=== PATIENT | female | born 1945 | race Caucasian/White ===

== ENCOUNTER 2018-07-03 09:10 | Inpatient (IN) | payer MEDICARE ==
[~2018-07-03] VITALS: Ht 162.6 cm; Wt 85.8 kg
[2018-07-03] VITALS (10 sets, daily range): BP systolic 109–135; BP diastolic 59–96
[2018-07-03 09:36] LABS: BASOPHILS % (AUTO) 0 % (0-10); EOSINOPHILS # (AUTO) 0.1 10^3/uL (0.0-0.3); EOSINOPHILS % (AUTO) 1 % (0-10); HEMATOCRIT 40 % (35-52); LYMPHOCYTES # (AUTO) 2.1 X 10^3 (1.0-4.0); LYMPHOCYTES % (AUTO) 27 % (12-44); MEAN CORPUSCULAR HGB CONC 35 G/DL (32-36); MEAN CORPUSCULAR VOLUME 94 FL (80-99); MONOCYTES # (AUTO) 0.5 X 10^3 (0.0-1.0); MONOCYTES % (AUTO) 7 % (0-12); NEUTROPHILS # (AUTO) 4.8 X 10^3 (1.8-7.8); NEUTROPHILS % (AUTO) 64 % (42-75); PLATELET COUNT 277 10^3/uL (130-400); RED BLOOD COUNT 4.31 10^6/uL (4.35-5.85); RED CELL DISTRIBUTION WIDTH 13.6 % (10.0-14.5); WHITE BLOOD COUNT 7.5 10^3/uL (4.3-11.0)
[2018-07-03 09:37] LABS: MEAN CORPUSCULAR HEMOGLOBIN 32 PG (25-34)
[2018-07-03] MEDS ORDERED: DILTIAZEM 25 MG/5 ML INJ (CARDIZEM) VIAL IVP ONE (09:45)
[2018-07-03] MEDS ORDERED: DILTIAZEM IV FOR DRIP 125 MG in NS (IVPB) 100 ML IV SCH ×2 (09:45→12:45)
[2018-07-03 09:55] LABS: PROTHROMBIN TIME PATIENT 13.5 SEC (12.2-14.7)
--- OUTSIDE RECORDS SUMMARY | 2018-07-03 09:59 | XMS REPORT ---
Author Author CHANDRAKANT BLOCK [facility] Address [address] [place] [address] Phone Unavailable Care Team Providers Care Automatic Equipment Technician Name Role Phone CHANDRAKANT BLOCK Unavailable Unavailable PROBLEMS Type Condition ICD9-CM Code [id number] Code Onset Dates Condition Status SNOMED Code Problem Other and unspecified noninfectious gastroenteritis and colitis 558.9 Active 41305384 Problem Unspecified conjunctivitis 372.30 Active 4784148 Problem Redness or discharge of eye 379.93 Active 94866932 Assessment Dental examination Z01.20 Apr, Active 765916882 Problem Nausea with vomiting 787.01 Active 30425840 Problem Blood in stool 578.1 Active 491161963 Problem Urinary tract infection, site not specified 599.0 Active 70103655 Problem Cough 786.2 Active 53524263 Problem Personal history of colonic polyps V12.72 Active 628154189 Problem Family history of malignant neoplasm of gastrointestinal tract V16.0 Active 246345476 Problem Elevated blood pressure reading without diagnosis of hypertension 796.2 Active 772474564 Problem Actinic keratosis 702.0 Active 962056822 ALLERGIES Substance Reaction Event Type Date Status N.K.D.A. Unknown Non Drug Allergy Apr, Unknown SOCIAL HISTORY No smoking Hx information available PLAN OF CARE VITAL SIGNS Blood pressure systolic 145 mmHg 2016-05-11 Blood pressure diastolic 85 mmHg 2016-05-11 MEDICATIONS Unknown Medications RESULTS No Results PROCEDURES Procedure Date Ordered Related Diagnosis Body Site COMP ORAL EVALUATION - NEW/EST PT May 11, 2016 INTRAORL-PERIAPICAL 1 FILM 78198 May 11, 2016 TOPICAL FLUORIDE VARNISH May 11, 2016 PROPHYLAXIS - ADULT May 11, 2016 INTRAORL-PERIAPICAL EA ADD FILM May 11, 2016 INTRAORL-PERIAPICAL EA ADD FILM May 11, 2016 PANORAMIC FILM SEE ALSO CODE 45117 May 11, 2016 BITEWINGS - FOUR FILMS May 11, 2016 IMMUNIZATIONS No Known Immunizations
--- OUTSIDE RECORDS SUMMARY | 2018-07-03 09:59 | XMS REPORT ---
Author Author KEDAR BURRIS [facility] Address [address] [place] [address] Care Team Providers Care Clinical Documentation Improvement Specialist Name Role Phone FATUMA KEDAR Unavailable PROBLEMS Type Condition ICD9-CM Code [id number] Code Onset Dates Condition Status SNOMED Code Problem Elevated blood pressure reading without diagnosis of hypertension 796.2 Active 021015285 Problem Cough 786.2 Active 89303041 Problem Nausea with vomiting 787.01 Active 83892749 Problem Family history of malignant neoplasm of gastrointestinal tract V16.0 Active 705443965 Problem Personal history of colonic polyps V12.72 Active 488215657 Problem Unspecified conjunctivitis 372.30 Active 5136972 Problem Redness or discharge of eye 379.93 Active 84926576 Problem Urinary tract infection, site not specified 599.0 Active 81154300 Problem Actinic keratosis 702.0 Active 175806231 Problem Other and unspecified noninfectious gastroenteritis and colitis 558.9 Active 08725822 Problem Blood in stool 578.1 Active 904389266 ALLERGIES No Known Allergies ENCOUNTERS Encounter Location Date Diagnosis [facility] [id number] [place] [address] May, Dysuria R30.0 and Bronchitis J40 [facility] [id number] [place] [address] Mar, Acute allergic rhinitis due to pollen, unspecified seasonality J30.1 [facility] [address] [id number] Oct, Dental examination Z01.20 [facility] [id number] [place] [id number] Jul, Dental examination Z01.20 [facility] [address] [id number] Jun, Dental examination Z01.20 [facility] [address] [id number] [place] [id number] Apr, Dental examination Z01.20 [facility] [address] [id number] [place] [address] 14 Dec, 2014 [facility] [address] [id number] [place] [address] Dec, [facility] [address] [id number] [place] [address] Nov, [facility] [address] [id number] [place] [address] Nov, [facility] [address] [id number] [place] [address] January, [facility] [address] [id number] [place] [address] January, [facility] [address] [id number] [place] Apr, [facility] [address] [id number] [place] [address] Apr, [facility] [address] [id number] [place] [address] Apr, [facility] [address] [id number] [place] [address] Aug, [facility] [address] [id number] [address] Aug, [facility] [address] [id number] [place] [address] Dec, [facility] [address] [id number] [place] [address] Nov, [facility] [address] [id number] [address] Nov, [facility] [address] [id number] [address] Nov, [facility] [address] [id number] [address] Jul, [facility] [address]65[address] [address] Jul, [facility] [address] [address] Jul, [facility] [address]65[address] [address] Jun, [facility] [address] [address] Jun, [facility] [address] [address] Jun, [facility] [address] [id number] [address] May, IMMUNIZATIONS No Known Immunizations SOCIAL HISTORY Never Assessed REASON FOR VISIT Nausea/cough, rib pain started about 1 week ago JStrasserRN PLAN OF CARE Activity Details Follow Up prn Reason: VITAL SIGNS Height 64 in 2017-03-23 Weight 194.8 lbs 2017-03-23 Temperature 97.2 degrees Fahrenheit 2017-03-23 Heart Rate 60 bpm 2017-03-23 Respiratory Rate 22 2017-03-23 BMI 33.43 kg/m2 2017-03-23 Blood pressure systolic 124 mmHg 2017-03-23 Blood pressure diastolic 88 mmHg 2017-03-23 MEDICATIONS Medication Instructions Dosage Frequency Start Date End Date Duration Status Ibuprofen Active RESULTS No Results PROCEDURES Procedure Date Ordered Result Body Site [facility] VISIT ESTABLISHED PATIENT March 23, 2017 INSTRUCTIONS MEDICATIONS ADMINISTERED No Known Medications MEDICAL (GENERAL) HISTORY Type Description Date Medical History hbp in the past Surgical History hysterectomy, total with bilateral salpingo-oophorectomy (BSO )
--- OUTSIDE RECORDS SUMMARY | 2018-07-03 09:59 | XMS REPORT ---
Author Author CAIT COYNE Organization [facility] Address [address] [place] [address] Care Team Providers Care Narrow Fabrics Weaver Name Role Phone CAIT COYNE Unavailable PROBLEMS Type Condition ICD9-CM Code EOA56-MP Code Onset Dates Condition Status SNOMED Code Problem Elevated blood pressure reading without diagnosis of hypertension 796.2 Active 675844104 Problem Cough 786.2 Active 39276066 Problem Nausea with vomiting 787.01 Active 40133873 Problem Family history of malignant neoplasm of gastrointestinal tract V16.0 Active 184597515 Problem Personal history of colonic polyps V12.72 Active 827355827 Problem Unspecified conjunctivitis 372.30 Active 2362308 Problem Redness or discharge of eye 379.93 Active 22372832 Problem Urinary tract infection, site not specified 599.0 Active 80286526 Problem Actinic keratosis 702.0 Active 109346042 Problem Other and unspecified noninfectious gastroenteritis and colitis 558.9 Active 84440388 Problem Blood in stool 578.1 Active 534212868 ALLERGIES No Known Allergies ENCOUNTERS Encounter Location Date Diagnosis [facility] [address] [address] May, Dysuria R30.0 and Bronchitis J40 [facility] [id number] [place] [address] Mar, Acute allergic rhinitis due to pollen, unspecified seasonality J30.1 [facility] [address] [id number] Oct, Dental examination Z01.20 [facility] [id number] [place] [id number] Jul, Dental examination Z01.20 [facility] [address] [id number] Jun, Dental examination Z01.20 [facility] [address] [id number] [place] [id number] Apr, Dental examination Z01.20 [facility] [address] [id number] [place] [address] Dec, [facility] [address] [id number] [place] Dec, [facility] [address] [id number] [place] [address] Nov, [facility] [address] [id number] [place] [address] Nov, [facility] [address] [id number] [place] [address] January, [facility] [address] [id number] [place] [address] January, [facility] [address] [id number] [place] [address] Apr, [facility] [address] [id number] [place] [address] Apr, [facility] [address] [id number] [place] [address] Apr, [facility] [address] [id number] [address] Aug, [facility] [address] [id number] [address] Aug, [facility] [address] [id number] [place] Dec, [facility] [address] [id number] [place] Nov, [facility] [address] [id number] [place] [address] Nov, [facility] [place] [facility] [address] [id number] [address] Nov, [facility] [address] [address] Jul, [facility] [address] [address] Jul, [facility] [address] [address] Jul, [facility] [address] [address] Jun, [facility] [address] [place] [address] Jun, [facility] [address] [address] Jun, [facility] [address] [address] May, IMMUNIZATIONS No Known Immunizations SOCIAL HISTORY Never Assessed REASON FOR VISIT congestion, cough, chest mucous started last month JStrasserRN, Burning with urination started several days ago PLAN OF CARE VITAL SIGNS Height 64 in 2017-06-07 Weight 190.0 lbs 2017-06-07 Temperature 98.2 degrees Fahrenheit 2017-06-07 Heart Rate 84 bpm 2017-06-07 Respiratory Rate 18 2017-06-07 BMI 32.61 kg/m2 2017-06-07 Blood pressure systolic 128 mmHg 2017-06-07 Blood pressure diastolic 80 mmHg 2017-06-07 MEDICATIONS Medication Instructions Dosage Frequency Start Date End Date Duration Status PredniSONE 20 mg Orally Once a day 2 tablets 24h May, May, 05 days Active Doxycycline Hyclate 100 MG Orally every 12 hrs 1 capsule 12h May, May, 5 day(s) Active Zyrtec Allergy 10 MG Orally Once a day 1 tablet 24h Active Ibuprofen Active RESULTS Name Result Date Reference Range UA LONG DIP (IN HOUSE) 2017-06-07 Lot # [id number] Exp date 2018-05-18 Clarity cloudy Color dark yellow Odor yes GLU negative UMANG negative KET trace SG 1.020 BLO 3+ pH 6.5 Protein 3+ URO 1.0 NIT positive RUBIO 3+ Lot # [id number] Exp date December 2017 CULTURE, URINE 2017-06-07 Urine Culture, Routine Final report Result 1 Escherichia coli Antimicrobial Susceptibility PROCEDURES Procedure Date Ordered Result Body Site URINALYSIS, AUTO, W/O SCOPE Jun 07, 2017 [facility], 2017 [facility] VISIT ESTABLISHED PATIENT Jun 07, 2017 INSTRUCTIONS MEDICATIONS ADMINISTERED No Known Medications MEDICAL (GENERAL) HISTORY Type Description Date Medical History hbp in the past Surgical History hysterectomy, total with bilateral salpingo-oophorectomy (BSO )
--- OUTSIDE RECORDS SUMMARY | 2018-07-03 10:00 | XMS REPORT ---
Author Author MARY READ [facility] Address Unknown Care Team Providers Care Duct Layer Name Role Phone MARY READ Unavailable PROBLEMS Type Condition ICD9-CM Code OVD56-VG Code Onset Dates Condition Status SNOMED Code Problem Elevated blood pressure reading without diagnosis of hypertension 796.2 Active 416644388 Problem Cough 786.2 Active 21555009 Problem Nausea with vomiting 787.01 Active 98439522 Problem Family history of malignant neoplasm of gastrointestinal tract V16.0 Active 624753770 Problem Personal history of colonic polyps V12.72 Active 264311021 Problem Unspecified conjunctivitis 372.30 Active 4760116 Problem Redness or discharge of eye 379.93 Active 52475796 Problem Urinary tract infection, site not specified 599.0 Active 42804447 Problem Actinic keratosis 702.0 Active 552925 Problem Other and unspecified noninfectious gastroenteritis and colitis 558.9 Active 65856027 Problem Blood in stool 578.1 Active 658896293 ALLERGIES No Known Allergies SOCIAL HISTORY Never Assessed PLAN OF CARE Activity Details Follow Up prn Reason:hygiene VITAL SIGNS Blood pressure systolic 136 mmHg 2016-10-27 Blood pressure diastolic 88 mmHg 2016-10-27 MEDICATIONS Medication Instructions Dosage Frequency Start Date End Date Duration Status Ibuprofen Active RESULTS No Results PROCEDURES Procedure Date Ordered Result Body Site RESIN COMPOS - 1 SURFACE POSTERIOR Oct 27, 2016 IMMUNIZATIONS No Known Immunizations MEDICAL (GENERAL) HISTORY Type Description Date Medical History hbp in the past Surgical History hysterectomy, total with bilateral salpingo-oophorectomy (BSO )
--- OUTSIDE RECORDS SUMMARY | 2018-07-03 10:00 | XMS REPORT ---
Author Author MARY READ [facility] Address Unknown Care Team Providers Care Costumer Name Role Phone MARY READ Unavailable PROBLEMS Type Condition ICD9-CM Code [id number] Code Onset Dates Condition Status SNOMED Code Problem Other and unspecified noninfectious gastroenteritis and colitis 558.9 Active 40253091 Problem Unspecified conjunctivitis 372.30 Active 8469054 Problem Redness or discharge of eye 379.93 Active 95814383 Problem Nausea with vomiting 787.01 Active 26847500 Problem Blood in stool 578.1 Active 335908213 Problem Urinary tract infection, site not specified 599.0 Active 19173124 Problem Cough 786.2 Active 62231332 Problem Personal history of colonic polyps V12.72 Active 721610345 Problem Family history of malignant neoplasm of gastrointestinal tract V16.0 Active 372321483 Problem Elevated blood pressure reading without diagnosis of hypertension 796.2 Active 711837374 Problem Actinic keratosis 702.0 Active 188995583 ALLERGIES Substance Reaction Event Type Date Status N.K.D.A. Unknown Non Drug Allergy Jul, Unknown SOCIAL HISTORY No smoking Hx information available PLAN OF CARE Activity Details Follow Up prn Reason:fillings VITAL SIGNS Blood pressure systolic 138 mmHg 2016-08-16 Blood pressure diastolic 94 mmHg 2016-08-16 MEDICATIONS No Known Medications RESULTS No Results PROCEDURES Procedure Date Ordered Related Diagnosis Body Site INTRAORL-PERIAPICAL 1 FILM [id number] Aug 16, 2016 RESIN COMPOS - 3 SURFACES ANTERIOR Aug 16, 2016 IMMUNIZATIONS No Known Immunizations
--- OUTSIDE RECORDS SUMMARY | 2018-07-03 10:00 | XMS REPORT | Continuity of Care Document ---
Author Author [facility] Address Unknown Phone Unavailable Allergies There is no data. Medications There is no data. Problems Date Dx Coded Attending Type Code Diagnosis Diagnosed By 09/29/2008 401.1 HYPERTENSION, BENIGN ESSENTIAL 09/29/2008 401.1 HYPERTENSION, BENIGN ESSENTIAL 09/29/2008 VAISHALI HERNA[place]DEZ DO K 401.1 HYPERTENSION, BENIGN ESSENTIAL 09/29/2008 VAISHALI HERNANDEZ DO K 401.1 HYPERTENSION, BENIGN ESSENTIAL 05/29/2009 845.00 ANKLE SPRAIN 05/29/2009 845.00 ANKLE SPRAIN 05/29/2009 MIRIAM HERNANDEZ DOA K 845.00 ANKLE SPRAIN 05/29/2009 MIRIAM HERNANDEZ DOA K 845.00 ANKLE SPRAIN 09/19/2009 466.0 ACUTE BRONCHITIS 09/19/2009 477.9 ALLERGIC RHINITIS 09/19/2009 786.2 cough 09/19/2009 466.0 ACUTE BRONCHITIS 09/19/2009 477.9 ALLERGIC RHINITIS 09/19/2009 786.2 cough 09/19/2009 MIRIAM HERNANDEZ DOA K 466.0 ACUTE BRONCHITIS 09/19/2009 DAVID ALVAREZ VAISHALI K 477.9 ALLERGIC RHINITIS 09/19/2009 MIRIAM HERNANDEZ DOA K 786.2 cough 09/19/2009 MIRIAM HERNANDEZ DOA K 466.0 ACUTE BRONCHITIS 09/19/2009 DAVID ALVAREZ VAISHALI K 477.9 ALLERGIC RHINITIS 09/19/2009 DAVID ALVAREZ VAISHALI K 786.2 cough 09/24/2009 461.8 OTHER ACUTE SINUSITIS 09/24/2009 461.8 OTHER ACUTE SINUSITIS 09/24/2009 VAISHALI HERNANDEZ DO K 461.8 OTHER ACUTE SINUSITIS 09/24/2009 DAVID ALVAREZ VAISHALI K 461.8 OTHER ACUTE SINUSITIS 02/06/2010 599.0 URINARY TRACT INFECTION 02/06/2010 788.41 URINARY FREQUENCY 02/06/2010 788.63 URINARY URGENCY 02/06/2010 599.0 URINARY TRACT INFECTION 02/06/2010 788.41 URINARY FREQUENCY 02/06/2010 788.63 URINARY URGENCY 02/06/2010 HERNANDEZ DO, VAISHALI K 599.0 URINARY TRACT INFECTION 02/06/2010 HERNANDEZ DO, VAISHALI K 788.41 URINARY FREQUENCY 02/06/2010 HERNANDEZ DO, VAISHALI K 788.63 URINARY URGENCY 02/06/2010 HERNANDEZ DO, VAISHALI K 599.0 URINARY TRACT INFECTION 02/06/2010 HERNANDEZ DO, VAISHALI K 788.41 URINARY FREQUENCY 02/06/2010 HERNANDEZ DO, VAISHALI K 788.63 URINARY URGENCY 05/24/2011 V06.5 TD DX 05/24/2011 V06.5 TD DX 05/24/2011 HERNANDEZ DO, VAISHALI K V06.5 TD DX 05/24/2011 HERNANDEZ DO, VAISHALI K V06.5 TD DX 07/06/2011 272.4 HYPERLIPIDEMIA 07/06/2011 272.4 HYPERLIPIDEMIA 07/06/2011 HERNANDEZ DO, VAISHALI K 272.4 HYPERLIPIDEMIA 07/06/2011 HERNANDEZ DO, VAISHALI K 272.4 HYPERLIPIDEMIA 11/17/2011 599.0 URINARY TRACT INFECTION 11/17/2011 786.2 COUGH 11/17/2011 599.0 URINARY TRACT INFECTION 11/17/2011 786.2 COUGH 11/17/2011 HERNANDEZ DO, VAISHALI K 599.0 URINARY TRACT INFECTION 11/17/2011 HERNANDEZ DO, VAISHALI K 786.2 COUGH 11/17/2011 HERNANDEZ DO, VAISHALI K 599.0 URINARY TRACT INFECTION 11/17/2011 HERNANDEZ DO, VAISHALI K 786.2 COUGH 09/04/2012 372.30 CONJUNCTIVITIS UNSPECIFIED 09/04/2012 379.93 REDNESS OR DISCHARGE OF EYE 09/04/2012 372.30 CONJUNCTIVITIS UNSPECIFIED 09/04/2012 379.93 REDNESS OR DISCHARGE OF EYE 09/04/2012 HERNANDEZ DO, VAISHALI K 372.30 CONJUNCTIVITIS UNSPECIFIED 09/04/2012 HERNANDEZ DO, VAISHALI K 379.93 REDNESS OR DISCHARGE OF EYE 09/04/2012 HERNANDEZ DO, VAISHALI K 372.30 CONJUNCTIVITIS UNSPECIFIED 09/04/2012 HERNANDEZ DO, VAISHALI K 379.93 REDNESS OR DISCHARGE OF EYE 05/06/2013 558.9 GASTROENTERITIS NONINFECTIOUS 05/06/2013 578.1 HEMATOCHEZIA 05/06/2013 787.01 NAUSEA WITH VOMITING 05/06/2013 VAISHALI HERNANDEZ DO 558.9 GASTROENTERITIS NONINFECTIOUS 05/06/2013 VAISHALI HERNANDEZ DO 578.1 HEMATOCHEZIA 05/06/2013 VAISHALI HERNANDEZ DO 787.01 NAUSEA WITH VOMITING 05/06/2013 VAISHALI HERNANDEZ DO 558.9 GASTROENTERITIS NONINFECTIOUS 05/06/2013 VAISHALI HERNANDEZ DO 578.1 HEMATOCHEZIA 05/06/2013 VAISHALI HERNANDEZ DO 787.01 NAUSEA WITH VOMITING 01/20/2014 VAISHALI HERNANDEZ DO 796.2 ELEVATED BLOOD PRESSURE READING WITHOUT DIAGNOSIS OF HYPERTENSION 01/20/2014 VAISHALI HERNANDEZ DO 796.2 ELEVATED BLOOD PRESSURE READING WITHOUT DIAGNOSIS OF HYPERTENSION 12/02/2014 VAISHALI HERNANDEZ DO 702.0 ACTINIC KERATOSIS 12/02/2014 VAISHALI HERNANDEZ DO V12.72 PERSONAL HISTORY OF COLONIC POLYPS 12/02/2014 VAISHALI HERNANDEZ DO V16.0 FAMILY HISTORY OF MALIGNANT NEOPLASM OF GASTROINTESTINAL TRACT Procedures Code [place] [address] ROUTINE VENIPUNCTURE 05/06/2013 78269 BMP 05/06/2013 46808 CBC 05/06/2013 2000F BLOOD PRESSURE CHECK 01/20/2014 76186 ROUTINE VENIPUNCTURE 12/18/2014 13692 CBC 12/18/2014 [id number] GFR CALC (RESULT ONLY) 12/18/2014 62640 CMP 12/18/2014 02823 LIPID PANEL 12/18/2014 59414 TSH 12/18/2014 Results Test Result Range CULTURE, URINE - 06/07/17 12:11 Urine Culture, Routine Final report NRG Result 1 Escherichia coli NRG Antimicrobial Susceptibility NRG Urine Culture, Routine - 06/07/17 12:11 Urine Culture, Routine Note Encounters ACCT No. Visit Date/Time Discharge Status Pt. Type Provider Facility Loc./Unit Complaint [id number] 12/18/2014 08:15:00 12/18/2014 23:59:59 CLS Outpatient VAISHALI HERNANDEZ [place] [id number] 01/20/2014 13:21:00 01/20/2014 23:59:59 CLS Outpatient VAISHALI HERNANDEZ DO [id number] 09/04/2012 18:26:00 09/04/2012 23:59:59 CLS Outpatient [id number] 05/06/2013 15:44:00 Document Registration [id number] 06/07/2017 11:40:00 06/07/2017 23:59:59 [facility] Outpatient MABEL BETANCOURT [facility] [id number] 06/07/2017 11:40:00 Document Registration [id number] 06/09/2017 19:06:00 Document Registration
--- NOTE | 2018-07-03 10:18 | ED Chest Pain ---
General Chief Complaint: Chest Pain Stated Complaint: CP Nursing Triage Note: TO ED PER EMS FROM [facility] WITH CHEST PAIN AND SOA ON ADMIT MONITOR SHOW A FIB WITH RVR WITH HR 130- 160"S. PATIENT REPORTS THAT HAS FELT SOA WITH CHEST PAIN ON AND OFF FOR LAST 2 DAYS Nursing Sepsis Screen: No Definite Risk Source: patient, EMS, other ([facility]) Exam Limitations: no limitations History of Present Illness Date Seen by Provider: Jul 03, 2018 Time Seen by Provider: 09:11 Initial Comments This 73-year-old woman presents to emergency room with complaints of chest pain. She arrives via EMS from [facility] clinic where she received aspirin 324 mg and a dose of nitroglycerin. The nitroglycerin did not help. EKG performed in the clinic showed atrial fibrillation with a normal rate. She is in RVR for EMS. Pain has improved since arriving to the hospital. She has no prior history of atrial fibrillation or any cardiac history. She woke this morning around 01:00 with the symptoms. She felt particularly lightheaded and dizzy. She had pain in the sternal area and radiating up to the left jaw. She recalls having a similar episode that was brief the night prior. Allergies and Home Medications Allergies Coded Allergies: No Known Drug Allergies (Unverified , 07/03/18) Home Medications Aspirin/Caffeine 1 Each Tablet, 2 TAB PO DAILY, (Reported) Patient Home Medication List Home Medication List Reviewed: Yes Review of Systems Review of Systems Constitutional: no symptoms reported EENTM: No Symptoms Reported Respiratory: No Symptoms Reported Cardiovascular: See HPI Gastrointestinal: No Symptoms Reported Genitourinary: No Symptoms Reported Musculoskeletal: no symptoms reported Skin: no symptoms reported Psychiatric/Neurological: No Symptoms Reported Endocrine: No Symptoms Reported Hematologic/Lymphatic: No Symptoms Reported Past Jofkuvy-Qxwoxz-Hogtzx Hx Past Med/Social Hx: Reviewed and Corrections made Patient Social History Alcohol Use: Denies Use Recreational Drug Use: No Smoking Status: Never a Smoker Recent Foreign Travel: No Contact w/Someone Who Travel: No Recent Infectious Disease Expo: No Past Medical History Surgeries: Yes (anterior-posterior pelvic repair) Hysterectomy Respiratory: No Cardiac: No 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 oz. 90.734281ud; BMI Method:Stated General Appearance: No Apparent Distress, WD/WN HEENT: PERRL/EOMI, Normal ENT Inspection, Pharynx Normal Neck: Normal Inspection Respiratory: Lungs Clear, Normal Breath Sounds, No Accessory Muscle Use, No Respiratory Distress Cardiovascular: No Edema, No Murmur, Irregularly Irregular, Tachycardia Gastrointestinal: Normal Bowel Sounds, Non Tender, Soft Extremity: Normal Inspection, Non Tender, No Pedal Edema Neurologic/Psychiatric: Alert, Oriented x3, No Motor/Sensory Deficits, Normal Mood/Affect, client support associate II-XII Norm as Tested Skin: Normal Color, Warm/Dry Progress/Results/Core Measures Results/Orders Lab Results Laboratory Tests Test 07/03/18 09:30 Range/Units White Blood Count 7.5 4.3-11.0 10^3/uL Red Blood Count 4.31 L 4.35-5.85 10^6/uL Hemoglobin 14.0 11.5-16.0 G/DL Hematocrit 40 35-52 % Mean Corpuscular Volume 94 80-99 FL Mean Corpuscular Hemoglobin 32 25-34 PG Mean Corpuscular Hemoglobin Concent 35 32-36 G/DL Red Cell Distribution Width 13.6 10.0-14.5 % Platelet Count 277 130-400 10^3/uL Mean Platelet Volume 9.0 7.4-10.4 FL Neutrophils (%) (Auto) 64 42-75 % Lymphocytes (%) (Auto) 27 12-44 % Monocytes (%) (Auto) 7 0-12 % Eosinophils (%) (Auto) 1 0-10 % Basophils (%) (Auto) 0 0-10 % Neutrophils # (Auto) 4.8 1.8-7.8 X 10^3 Lymphocytes # (Auto) 2.1 1.0-4.0 X 10^3 Monocytes # (Auto) 0.5 0.0-1.0 X 10^3 Eosinophils # (Auto) 0.1 0.0-0.3 10^3/uL Basophils # (Auto) 0.0 0.0-0.1 10^3/uL Prothrombin Time 13.5 12.2-14.7 SEC INR Comment 1.0 0.8-1.4 Activated Partial Thromboplast Time 29 24-35 SEC Sodium Level 143 135-145 MMOL/L Potassium Level 4.0 3.6-5.0 MMOL/L Chloride Level 112 H 98-107 MMOL/L Carbon Dioxide Level 18 L 21-32 MMOL/L Anion Gap 13 5-14 MMOL/L Blood Urea Nitrogen 25 H 7-18 MG/DL Creatinine 0.78 0.60-1.30 MG/DL Estimat Glomerular Filtration Rate > 60 BUN/Creatinine Ratio 32 Glucose Level 107 H 70-105 MG/DL Calcium Level 9.6 8.5-10.1 MG/DL Corrected Calcium 9.8 8.5-10.1 MG/DL Magnesium Level 2.0 1.8-2.4 MG/DL Total Bilirubin 1.0 0.1-1.0 MG/DL Aspartate Amino Transf (AST/SGOT) 17 5-34 U/L Alanine Aminotransferase (ALT/SGPT) 17 0-55 U/L Alkaline Phosphatase 86 40-136 U/L Myoglobin 49.0 10.0-92.0 NG/ML Troponin I < 0.30 <0.30 NG/ML Total Protein 6.4 6.4-8.2 GM/DL Albumin 3.7 3.2-4.5 GM/DL TSH [place]in Testing 1.55 0.35-4.94 UIU/ML My Orders Orders - REMBERTO JUAREZ MD Ekg Tracing (07/03/18 09:11) Cbc With Automated Diff (07/03/18:) Magnesium (07/03/18:) Chest 1 View, Ap/Pa Only (07/03/18:) Cardiac Profile 1 (07/03/18:) Comprehensive Metabolic Panel (07/03/18:) Myoglobin Serum (07/03/18:) Protime With Inr (07/03/18:) Partial Thromboplastin Time (07/03/18:) O2 (07/03/18:) Monitor-Rhythm Ecg Trace Only (07/03/18:) Lipid Panel (07/04/18 06:00) Saline Lock/Iv-Start (07/03/18 09:17) Thyroid Analyzer (07/03/18 09:17) Diltiazem Injection (Cardizem Injection) (07/03/18 09:45) Ns (Ivpb) (Sodium C... W/Diltiazem Iv Fo (07/03/18 09:45) Apixaban Tablet (Eliquis Tablet) (07/03/18 11:45) Medications Given in ED Current Medications Medications Dose Ordered Sig/Surendra Route Start Time Stop Time Status Last Admin Dose Admin Diltiazem HCl 10 mg ONCE ONCE IVP 07/03/18 09:45 07/03/18 09:46 DC 07/03/18 09:39 10 MG Vital Signs/I&O 07/03/18 07/03/18 07/03/18 07/03/18 09:10 09:15 09:50 10:02 Pulse 113 Resp 18 B/P (MAP) 122/93 135/96 (109) Pulse Ox 98 O2 Delivery Room Air Room Air 07/03/18 10:54 Pulse 100 Resp 18 B/P (MAP) 134/95 (108) Pulse Ox 97 O2 Delivery Room Air Blood Pressure Mean: 109 Progress Progress Note : Progress Note Patient had much improved vital signs on her Cardizem drip. She was feeling much improved as well. Workup was unremarkable. Eliquis was initiated in the ER per Dr. Valente's recommendation. Initial ECG Impression Date: Jul 03, 2018 Initial ECG Impression Time: 09:13 Initial ECG Rate: 174 Initial ECG Rhythm: A Fib/Flutter Initial ECG Impression: Atrial Fibrillation w/RVR Comment Atrial fibrillation with repolarization abnormalities. Diagnostic Imaging Diagonstic Imaging: Xray Plain Films/CT/US/NM/MRI: chest Comments Chest x-ray viewed by me and report reviewed. See report below: NAME: MARY DEWITT [facility] REC#: [id number] PT STATUS: REG ER : 1945 PHYSICIAN: REMBERTO JUAREZ MD ADMIT DATE: 07/03/18/ER Draft Date of Exam:07/03/18 CHEST 1 VIEW, AP/PA ONLY Portable erect AP chest at 1019 hours. INDICATION: Chest pain, shortness of breath. There are no prior studies available for comparison. FINDINGS: The heart size is at the upper limits of normal or slightly enlarged. The lungs are clear. There is no sign of failure, pneumonia or pleural effusion to indicate an acute abnormality. The mediastinum is not widened but the superior mediastinum on the right is somewhat prominent. This is more likely due to vascular ectasia than to a mediastinal mass. If previous exams are available, they would be helpful for comparison. If there are no prior studies available, however, then CT of the chest would be recommended. The osseous structures are intact. IMPRESSION: 1. There is borderline cardiomegaly, but there is no evidence for an acute cardiopulmonary abnormality. 2. The prominence of superior mediastinum on the right is more likely due to vascular ectasia than to a mediastinal mass. Recommendations as above. Dictated on workstation # [id number] Dict: 07/03/18 1028 Trans: 07/03/18 1033 [id number] Interpreted by: LIZZ CARSON MD Departure Communication (Admissions) Time/Spoke to Admitting Phy: 11:25 Dr. Pierce Time/Spoke to Consulting Phy: 11:18 Dr. Valente Impression Primary Impression: Atrial fibrillation with RVR Additional Impressions: New onset a-fib Chest pain Qualified Codes: R07.9 - Chest pain, unspecified Disposition: ADMITTED INPATIENT Condition: Improved Admissions Decision to Admit Reason: Admit from ER (General) Decision to Admit/Date: Jul 03, 2018 Time/Decision to Admit Time: 09:11 REMBERTO JUAREZ MD Jul 03, 2018 10:18
--- NOTE | 2018-07-03 10:34 | Diagnostic Imaging Report ---
Portable erect AP chest at 1019 hours. INDICATION: Chest pain, shortness of breath. There are no prior studies available for comparison. FINDINGS: The heart size is at the upper limits of normal or slightly enlarged. The lungs are clear. There is no sign of failure, pneumonia or pleural effusion to indicate an acute abnormality. The mediastinum is not widened but the superior mediastinum on the right is somewhat prominent. This is more likely due to vascular ectasia than to a mediastinal mass. If previous exams are available, they would be helpful for comparison. If there are no prior studies available, however, then CT of the chest would be recommended. The osseous structures are intact. IMPRESSION: 1. There is borderline cardiomegaly, but there is no evidence for an acute cardiopulmonary abnormality. 2. The prominence of superior mediastinum on the right is more likely due to vascular ectasia than to a mediastinal mass. Recommendations as above. Dictated by: Dictated on workstation # [id number]
[2018-07-03 10:35] LABS: ALANINE AMINOTRANSFERASE 17 U/L (0-55); ALBUMIN 3.7 GM/DL (3.2-4.5); ALKALINE PHOSPHATASE 86 U/L (40-136); BUN/CREATININE RATIO 32; CALCIUM 9.6 MG/DL (8.5-10.1); CARBON DIOXIDE 18 MMOL/L (21-32); CHLORIDE 112 MMOL/L (98-107); CREATININE SERUM 0.78 MG/DL (0.60-1.30); GFR ESTIMATED > 60; GLUCOSE 107 MG/DL (70-105); SODIUM 143 MMOL/L (135-145); TOTAL PROTEIN 6.4 GM/DL (6.4-8.2)
[2018-07-03] MEDS ORDERED: APIXABAN 5 MG (ELIQUIS) TABLET PO ONE (11:45)
--- NOTE | 2018-07-03 12:30 | Consultation-Cardiology ---
HPI-Cardiology Cardiology Consultation: Date of Consultation 07/03/18 Time Seen by a Provider: 12:30 Date of Admission 07-03-18 Attending Physician Tiffany Pierce MD Admitting Physician No,Local Physician Consulting Physician Antonia Valente MD HPI: Chief Complaint: New onset a-fib with RVR Ms. Valenzuela is a 73 year old female admitted to ICU 10 from the ED with new onset a-fib with RVR Review of Systems-Cardiology Review of Systems Constitutional: No chills, No fever; tiredness Eyes: No vision change Ears/Nose/Throat: No recent hearing loss Respiratory: As described under HPI Cardiovascular: As described under HPI Gastrointestinal: abdomen distended; No constipation, No diarrhea; nausea; No vomiting Genitourinary: No dysuria, No hematuria Skin: No rash, No ulcerations Psychiatric/Neurological: No anxiety, No depression, No seizure, No focal weakness, No syncope Hematologic: No bleeding abnormalities IFO-Ywmshd-Zsblpk Hx Patient Social History Alcohol Use: Denies Use Recreational Drug Use: No Smoking Status: Never a Smoker Recent Foreign Travel: No Recent Infectious Disease Expo: No Hospitalization with Isolation: Denies Past Medical History PMH As described under Assessment. Allergies and Home Medications Allergies Coded Allergies: No Known Drug Allergies (Unverified , 07/03/18) Home Medications Aspirin/Caffeine 1 Each Tablet, 2 TAB PO DAILY, (Reported) Physical Exam-Cardiology Physical Exam Vital Signs/I&O 07/03/18 07/03/18 07/03/18 07/03/18 09:10 09:15 09:50 10:02 Pulse 113 Resp 18 B/P (MAP) 122/93 135/96 (109) Pulse Ox 98 O2 Delivery Room Air Room Air 07/03/18 07/03/18 07/03/18 07/03/18 10:54 12:10 12:30 12:30 Temp 98.2 Pulse 100 93 103 Resp 18 18 14 B/P (MAP) 134/95 (108) 125/75 (92) 127/80 (96) Pulse Ox 97 96 98 O2 Delivery Room Air Room Air Room Air Room Air 07/03/18 07/03/18 13:00 13:00 Pulse 92 105 Resp 8 B/P (MAP) 122/86 (98) Pulse Ox 98 O2 Delivery Room Air Capillary Refill : Less Than 3 Seconds Data Review Labs Laboratory Tests 07/03/18 09:30: White Blood Count 7.5, Red Blood Count 4.31L, Hemoglobin 14.0, Hematocrit 40, Mean Corpuscular Volume 94, Mean Corpuscular Hemoglobin 32, Mean Corpuscular Hemoglobin Concent 35, Red Cell Distribution Width 13.6, Platelet Count 277, Mean Platelet Volume 9.0, Neutrophils (%) (Auto) 64, Lymphocytes (%) (Auto) 27, Monocytes (%) (Auto) 7, Eosinophils (%) (Auto) 1, Basophils (%) (Auto) 0, Neutrophils # (Auto) 4.8, Lymphocytes # (Auto) 2.1, Monocytes # (Auto) 0.5, Eosinophils # (Auto) 0.1, Basophils # (Auto) 0.0, Prothrombin Time 13.5, INR Comment 1.0, Activated Partial Thromboplast Time 29, Sodium Level 143, Potassium Level 4.0, Chloride Level 112H, Carbon Dioxide Level 18L, Anion Gap 13 , Blood Urea Nitrogen 25H, Creatinine 0.78, Estimat Glomerular Filtration Rate > 60, BUN/Creatinine Ratio 32, Glucose Level 107H, Calcium Level 9.6, Corrected Calcium 9.8, Magnesium Level 2.0, Total Bilirubin 1.0, Aspartate Amino Transf ( AST/SGOT) 17, Alanine Aminotransferase (ALT/SGPT) 17, Alkaline Phosphatase 86, Myoglobin 49.0, Troponin I < 0.30, Total Protein 6.4, Albumin 3.7, TSH [place] Testing 1.55 Radiology NAME: MARY VALENZUELA [facility] REC#: [id number] PT STATUS: REG ER : 1945 PHYSICIAN: REMBERTO JUAREZ MD ADMIT DATE: 07/03/18/ER Draft Date of Exam:07/03/18 CHEST 1 VIEW, AP/PA ONLY Portable erect AP chest at 1019 hours. INDICATION: Chest pain, shortness of breath. There are no prior studies available for comparison. FINDINGS: The heart size is at the upper limits of normal or slightly enlarged. The lungs are clear. There is no sign of failure, pneumonia or pleural effusion to indicate an acute abnormality. The mediastinum is not widened but the superior mediastinum on the right is somewhat prominent. This is more likely due to vascular ectasia than to a mediastinal mass. If previous exams are available, they would be helpful for comparison. If there are no prior studies available, however, then CT of the chest would be recommended. The osseous structures are intact. IMPRESSION: 1. There is borderline cardiomegaly, but there is no evidence for an acute cardiopulmonary abnormality. 2. The prominence of superior mediastinum on the right is more likely due to vascular ectasia than to a mediastinal mass. Recommendations as above. Dictated on workstation # [id number] Dict: 07/03/18 1028 Trans: 07/03/18 1033 [id number] Interpreted by: LIZZ CARSON MD Electronically signed by: ECG Impression ECG Initial ECG Impression: Atrial Fibrillation w/RVR A/P-Cardiology Assessment/Admission Diagnosis New onset a-fib with RVR (first dx today) Clinical Quality Measures AMI/AHF: ASA po Prior to arrival: Yes (BY [facility] ) [address] [facility] Jul 03, 2018 12:30
--- OUTSIDE RECORDS SUMMARY | 2018-07-03 12:41 | XMS REPORT | Continuity of Care Document ---
Author Author [facility] Address Unknown Phone Unavailable Allergies There is [...] Procedures Code [place] [address] ROUTINE VENIPUNCTURE 05/06/2013 00816 BMP 05/06/2013 65616 CBC 05/06/2013 2000F BLOOD PRESSURE CHECK 01/20/2014 44106 ROUTINE VENIPUNCTURE 12/18/2014 83946 CBC 12/18/2014 [id number] GFR CALC (RESULT ONLY) 12/18/2014 74852 CMP 12/18/2014 07383 LIPID PANEL 12/18/2014 74784 TSH 12/18/2014 Results Test Result Range CULTURE, URINE - 06/07/17 12:11 Urine Culture, Routine Final report NRG Result 1 Escherichia coli NRG Antimicrobial Susceptibility NRG Urine Culture, Routine - 06/07/17 12:11 Urine Culture, Routine Note Encounters ACCT No. Visit Date/Time Discharge Status Pt. Type Provider Facility Loc./Unit Complaint [id number] 12/18/2014 08:15:00 12/18/2014 23:59:59 C[facility] Outpatient VAISHALI HERNANDEZ DO [id number] 01/20/2014 13:21:00 01/20/2014 23:59:59 CLS Outpatient VAISHALI HERNANDEZ DO [id number] 09/04/2012 18:26:00 09/04/2012 23:59:59 CLS Outpatient [id number] 05/06/2013 15:44:00 Document Registration [id number] 06/07/2017 11:40:00 06/07/2017 23:59:59 [facility] Out[facility] [id number] 06/07/2017 11:40:00 Document Registration [id number] 06/09/2017 19:06:00 Document Registration
[2018-07-03] MEDS ORDERED: ONDANSETRON 4 MG/2 ML (SDV) Z0FRAN IV PRN (12:45)
[2018-07-03] MEDS ORDERED: CATHETER FLUSH 10 ML SYR IV PRN (12:45)
[2018-07-03] MEDS ORDERED: DILTIAZEM 240 MG (CARDIZEM CD) CAP PO NR (13:00)
[2018-07-03] MEDS ORDERED: meTOproloL SUCCINATE 50 MG (TOPROL XL) TAB PO NR (13:00)
[2018-07-03] MEDS ORDERED: FLU QUADRIvalent (5+ YOA) 2018-2019 (AFLURIA) 0.5 ML IM ONE (13:00)
--- NOTE | 2018-07-03 13:39 | Consultation-Cardiology ---
HPI-Cardiology Cardiology Consultation: Date of Consultation 07/03/18 Time Seen by a Provider: 13:25 Date of Admission Attending Physician Tiffany Pierce MD Admitting Physician No,Local Physician Consulting Physician BERNADETTE NAM MD, MA, FACP, FACC, FSCAI, CCDS Physician requesting consult: [facility] HPI: Chief Complaint: Reason for consultation: New onset a-fib with RVR HPI: Ms. Valenzuela is a 73 year old female admitted to ICU 10 from the ED with new onset a-fib with RVR. She awoke with a feeling of palp and chest discomfort this am and went to her pcp from where she was sent to the ER. Was found to have A Fib with RVR. Has been having similar symptoms lasting less than an hour for the last several days at home. Today's episode was much more prolonged and lasted several hours prior to improvement in ER with vent rate control. Did received s/l NTG in ER but it did not help symptoms much. Chest discomfort is a feeling of pressure in the mid or L parasternal area that radiates to L neck and mod in intensity and not associated with symptoms other than gen malaise and a feeling of rapid heart beat. It is w/o aggravating or relieving factors Review of Systems-Cardiology Review of Systems Constitutional: No chills, No fever; tiredness Eyes: No vision change Ears/Nose/Throat: No recent hearing loss Respiratory: As described under HPI Cardiovascular: As described under HPI Gastrointestinal: abdomen distended; No constipation, No diarrhea; nausea; No vomiting Genitourinary: No dysuria, No hematuria Skin: No rash, No ulcerations Psychiatric/Neurological: No anxiety, No depression, No seizure, No focal weakness, No syncope Hematologic: No bleeding abnormalities HUO-Fjmsji-Bgfgng Hx Patient Social History Alcohol Use: Denies Use Recreational Drug Use: No Smoking Status: Never a Smoker Recent Foreign Travel: No Recent Infectious Disease Expo: No Hospitalization with Isolation: Denies Past Medical History PMH As described under Assessment. Family Medical History Family History: Colon cancer 19 MOTHER Hypertension 19 MOTHER G8 BROTHER Allergies and Home Medications Allergies Coded Allergies: No Known Drug Allergies (Unverified , 07/03/18) Patient Home Medication List Home Medication List Reviewed: Yes Physical Exam-Cardiology Physical Exam Vital Signs/I&O 07/03/18 07/03/18 07/03/18 07/03/18 09:10 09:15 09:50 10:02 Pulse 113 Resp 18 B/P (MAP) 122/93 135/96 (109) Pulse Ox 98 O2 Delivery Room Air Room Air 07/03/18 07/03/18 07/03/18 07/03/18 10:54 12:10 12:30 13:00 Temp 98.2 Pulse 100 93 103 92 Resp 18 18 14 B/P (MAP) 134/95 (108) 125/75 (92) 127/80 (96) Pulse Ox 97 96 98 O2 Delivery Room Air Room Air Room Air 07/03/18 13:00 Pulse 105 Resp 8 B/P (MAP) 122/86 (98) Pulse Ox 98 O2 Delivery Room Air Capillary Refill : Less Than 3 Seconds Constitutional: AAO x 3, well-developed, well-nourished HEENT: EOMI, hearing is well preserved; No xanthelasmas are seen Neck: No carotid bruit; carotid pulses are 2 + bilaterally Respiratory: No accessory muscle use; lungs clear to percussion, lungs clear to auscultation Cardiovascular: irregularly irregular, S1 and S2, systolic murmur (faint ERNESTINA at card base) Gastrointestinal: No tender, No guarding, No rebound; audible bowel sounds Extremities: No clubbing, No cyanosis, No significant edema Neurologic/Psychiatric: grossly intact, power is 5/5 both on sides Skin: No rash on exposed areas, No ulcerations on exposed areas Data Review Labs Laboratory Tests 07/03/18 09:30: White Blood Count 7.5, Red Blood Count 4.31L, Hemoglobin 14.0, Hematocrit 40, Mean Corpuscular Volume 94, Mean Corpuscular Hemoglobin 32, Mean Corpuscular Hemoglobin Concent 35, Red Cell Distribution Width 13.6, Platelet Count 277, Mean Platelet Volume 9.0, Neutrophils (%) (Auto) 64, Lymphocytes (%) (Auto) 27, Monocytes (%) (Auto) 7, Eosinophils (%) (Auto) 1, Basophils (%) (Auto) 0, Neutrophils # (Auto) 4.8, Lymphocytes # (Auto) 2.1, Monocytes # (Auto) 0.5, Eosinophils # (Auto) 0.1, Basophils # (Auto) 0.0, Prothrombin Time 13.5, INR Comment 1.0, Activated Partial Thromboplast Time 29, Sodium Level 143, Potassium Level 4.0, Chloride Level 112H, Carbon Dioxide Level 18L, Anion Gap 13 , Blood Urea Nitrogen 25H, Creatinine 0.78, Estimat Glomerular Filtration Rate > 60, BUN/Creatinine Ratio 32, Glucose Level 107H, Calcium Level 9.6, Corrected Calcium 9.8, Magnesium Level 2.0, Total Bilirubin 1.0, Aspartate Amino Transf ( AST/SGOT) 17, Alanine Aminotransferase (ALT/SGPT) 17, Alkaline Phosphatase 86, Myoglobin 49.0, Troponin I < 0.30, Total Protein 6.4, Albumin 3.7, TSH [place] Testing 1.55 Laboratory Tests 07/03/18 09:30 A/P-Cardiology Assessment/Admission Diagnosis New onset a-fib with RVR (first diagnosed on 07/03/18) Chest discomfort during episodes of A Fib with RVR Fam h/o early CAD (son) Discussion and Recomendations * Treat with long-acting dilt and bb and apixaban * We reviewed and discussed the rationale and pros and cons of above meds and answered questions * Serial card enz and ECG * If evidence of ACS, then consider cath * Monitor labs * Echo to eval for structural heart disease * Further recs to be based on hosp course Clinical Quality Measures AMI/AHF: ASA po Prior to arrival: Yes (BY [facility] ) BERNADETTE NAM MD FACP FAC CCDS Jul 03, 2018 13:39
[2018-07-03] MEDS ORDERED: ASPI-816 PO (14:20)
[2018-07-03] MEDS: CATHETER FLUSH 10 ML SYR IV SCH ×2 (15:40→20:42)
[2018-07-03] MEDS: APIXABAN 5 MG (ELIQUIS) TABLET PO SCH (20:40)
[2018-07-04] VITALS: BP 142/69
[2018-07-04 04:54] VITALS: BP 127/65
[2018-07-04] MEDS: CATHETER FLUSH 10 ML SYR IV SCH (05:32)
[2018-07-04 06:30] LABS: CHOLESTEROL 196 MG/DL (< 200); HDL CHOLESTEROL 41 MG/DL (40-60); TRIGLYCERIDES 155 MG/DL (<150); VLDL CHOLESTEROL 31 MG/DL (5-40)
[2018-07-04] MEDS ORDERED: FLU QUADRIvalent (5+ YOA) 2018-2019 (AFLURIA) 0.5 ML IM ONE (08:37)
[2018-07-04 08:40] VITALS: BP 135/70
[2018-07-04] MEDS: APIXABAN 5 MG (ELIQUIS) TABLET PO SCH (08:44)
[2018-07-04] MEDS ORDERED: DILTIAZEM 240 MG (CARDIZEM CD) CAP PO SCH (09:00)
[2018-07-04] MEDS ORDERED: meTOproloL SUCCINATE 50 MG (TOPROL XL) TAB PO SCH (09:00)
--- NOTE | 2018-07-04 09:37 | Progress Note-Cardiology ---
Cardiology SOAP Progress Note Subjective: Sitting up in a chair at the bedside. Eager to go home. No c/o CP, palpitations, syncope or near syncope. Objective: I&O/Vital Signs 07/04/18 07/04/18 07/04/18 07/04/18 07:00 08:00 08:40 12:00 Temp 97.5 95.3 Pulse 60 60 62 72 Resp 16 16 B/P (MAP) 135/70 (91) 143/63 (89) Pulse Ox 92 93 O2 Delivery Room Air Room Air 07/04/18 07/04/18 13:00 14:13 Pulse 60 B/P (MAP) 07/04/18 00:00 Intake Total 990 ml Balance 990 ml Weight (Pounds): 189 Weight (Ounces): 3.2 Weight (Calculated Kilograms): 85.609444 Constitutional: AAO x 3, well-developed, well-nourished Respiratory: No accessory muscle use; lungs clear to percussion, lungs clear to auscultation Cardiovascular: regular rate-rhythm, S1 and S2, systolic murmur (faint ERNESTINA at card base) Gastrointestional: No tender, No guarding, No rebound; audible bowel sounds Extremities: No clubbing, No cyanosis, No significant edema Neurologic/Psychiatric: grossly intact, power is 5/5 both on sides Skin: No rash on exposed areas, No ulcerations on exposed areas Results/Procedures: Labs Laboratory Tests 07/04/18 05:55: Triglycerides Level 155H, Cholesterol Level 196, LDL Cholesterol Direct 144H, VLDL Cholesterol 31, HDL Cholesterol 41 Microbiology 07/03/18 MRSA Screen - Final, Complete MRSA not isolated Laboratory Tests 07/03/18 09:30 A/P: Assessment: PAF, first diagnosed on 07/03/18. 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 Wishes to go home Lungs: clear Cor: reg Ext: no c/c/e Neuro: bilat equal power A&R * As documented in our note above that I updated (italics) and as noted below * I reviewed her CV issues with her * I reviewed echo results with her * BB and apixaban added to regimen. Pros and cons and rationale of meds discussed and compliance advised * Questions answered * Outpt f/u advised Clinical Quality Measures AMI/AHF: ASA po Prior to arrival: Yes (BY [facility] ) [address] [employer] ANALY[employer] Jul 04, 2018 09:37 BERNADETTE NAM MD FACP [facility] Jul 04, 2018 18:00
[2018-07-04 12:00] VITALS: BP 143/63
--- NOTE | 2018-07-04 12:00 | Short Stay Summary ---
History of Present Illness History of Present Illness Reason for visit/HPI 73 yo F that presented to ER after having palpitations and chest pain. States that she has been having increase in fatigue for the past few weeks. States that she has felt her heart skipping beats but that she did not have pain associated with it prior to yesterday and that is what made her present to ER. Never been diagnosed with A fib prior to yesterday. Denies any weakness and numbness in her arms or legs. Denies any previous heart conditions. Date of Admission Jul 03, 2018 at 11:39 am Date of Discharge 07/04/18 Time Seen by Provider: 11:25 Attending Physician Mike Pierce MD Admitting Physician No,Local Physician Consult Allergies and Home Medications Allergies Coded Allergies: No Known Drug Allergies (Unverified , 07/03/18) Home Medications Apixaban 5 Mg Tablet, 5 MG PO BID Prescribed by: IMKE PIERCE on 07/04/18 1201 Metoprolol Succinate 50 Mg Tab.er.24h, 50 MG PO DAILY Prescribed by: MIKE PIERCE on 07/04/18 1201 Patient Home Medication List Home Medication List Reviewed: Yes Past Wofuwch-Sfwebr-Bryjtk Hx Patient Social History Living Status: Lives at home, son checks on patient regularly Alcohol Use: Denies Use Recreational Drug Use: No Smoking Status: Never a Smoker Physical Abuse Screen: No Sexual Abuse: No Recent Foreign Travel: No Contact w/other who traveled: No Recent Infectious Disease Expo: No Seasonal Allergies Seasonal Allergies: No Surgeries Yes (anterior-posterior pelvic repair) Hysterectomy Respiratory No Cardiovascular No Neurological No 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 Genitourinary No Gastrointestinal No Musculoskeletal No Endocrine History of Endocrine Disorders: No HEENT History of HEENT Disorders: No Cancer No Psychosocial History of Psychiatric Problem: No Integumentary History of Skin or Integumenta: No Family Medical History Family Hx: Colon cancer 19 MOTHER Hypertension 19 MOTHER G8 BROTHER Review of Systems Constitutional: malaise, weakness EENTM: no symptoms reported; No hearing loss, No vision loss Respiratory: no symptoms reported; No cough, No dyspnea on exertion, No orthopnea, No short of breath Cardiovascular: chest pain (resolved this AM), palpitations Gastrointestinal: no symptoms reported; No constipation, No diarrhea, No melena , No nausea, No vomiting Genitourinary: no symptoms reported; No dysuria, No frequency, No hematuria : No Musculoskeletal: no symptoms reported; No back pain, No joint pain, No muscle pain Skin: no symptoms reported; No lesions, No rash Psychiatric/Neurological: No Symptoms Reported; Denies Headache, Denies Numbness, Denies Weakness Physical Exam Vital Signs Vital Signs - First Documented 07/03/18 07/03/18 07/03/18 07/03/18 09:15 09:50 10:02 12:30 Temp 98.2 Pulse 113 Resp 18 B/P (MAP) 122/93 Pulse Ox 98 O2 Delivery Room Air Capillary Refill : Less Than 3 Seconds Height, Weight, BMI Height: 5'4.00" Weight: 189lbs. 3.2oz. 85.094839cl; 32.7 BMI Method:Stated General Appearance: No Apparent Distress, WD/WN HEENT: PERRL/EOMI Neck: Full Range of Motion, Normal Inspection, Non Tender, Supple Respiratory: Chest Non Tender, Lungs Clear, Normal Breath Sounds, No Accessory Muscle Use, No Respiratory Distress Cardiovascular: Regular Rate, Rhythm, No Murmur Gastrointestinal: Normal Bowel Sounds, Non Tender, Soft Back: No CVA Tenderness, No Vertebral Tenderness Extremity: Normal Capillary Refill, Non Tender, No Calf Tenderness, No Pedal Edema Neurologic/Psychiatric: Alert, Oriented x3, No Motor/Sensory Deficits, Normal Mood/Affect, 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 Norm as Tested Skin: Normal Color, Warm/Dry Lymphatic: No Adenopathy Clinical Quality Measures AMI/AHF: ASA po Prior to arrival: Yes (BY [facility] ) DVT/VTE Risk/Contraindication: Risk Factor Score Per Nursin RFS Level Per Nursing on Admit: 2=Moderate Short Stay Diagnosis Discharge Diagnosis-Short Stay Admission Diagnosis: Atrial Fibrillation with RVR Final Discharge Diagnosis: Atrial Fibrillation with RVR Conclusion Labs Laboratory Tests 07/04/18 05:55: Triglycerides Level 155H, Cholesterol Level 196, LDL Cholesterol Direct 144H, VLDL Cholesterol 31, HDL Cholesterol 41 Conclusion/Plan 73 yo F that presented to ER with A fib with RVR new onset Plan New Onset A fib with RVR - Cardiology consulted - Normal Echo - Started on BB for rate control - Started on anticoagulation - Has close f.u with cardiology and [facility] next week Copy Copies To 1: [facility] MIKE PIERCE MD Jul 04, 2018 12:00
[2018-07-04] MEDS ORDERED: METO-370 PO (12:01)
[2018-07-04] MEDS ORDERED: APIX5TAB PO (12:01)
--- NOTE | 2018-07-04 12:04 | Discharge Instructions ---
Discharge Inst-[facility] Discharge Medications New, Converted or Re-Newed RX: Transmitted to Pharmacy New Medications: Apixaban (Eliquis) 5 Mg Tablet 5 MG PO BID for 30 Days, #60 TAB Metoprolol Succinate (Metoprolol Succinate) 50 Mg Tab.er.24h 50 MG PO DAILY, #30 TAB Discontinued Medications: Aspirin/Caffeine (Yovany Back & Body Caplet) 1 Each Tablet 2 TAB PO DAILY, TAB Patient Instructions Goal/Follow Up Appt: You have a follow up fiordaliza with Alix Moore APRN on 07/10 @ 1020 Patient Instructions: - Be sure to take your blood thinner [facility] to [facility] - Unable to tolerate medications - Chest pain - Shortness of breath Activity & Diet Discharge Diet: Cardiac Diet Activity as Tolerated: Yes Orders-Post D/C & Referrals Pneu Vac Indicated: Yes Copy Copies To 1: [facility] MIKE Hoff APRN, MD Jul 04, 2018 12:04 pm
== END 2018-07-04 14:15 | disposition home or self-care (01) | DRG 310 ==
LOC: EDUNIT# 09:10 → ER 09:11 → ICU 11:39 → 4TH 15:47
PROVIDERS: ADMIT Family Medicine; ATTEND Family Medicine
DX: I48.0 Paroxysmal atrial fibrillation (principal); R07.89 Other chest pain; Z82.49 Family history of ischemic heart disease and other diseases of the circulatory system; Z23 Encounter for immunization
CPT/HCPCS: 36415; 71045; 80053; 80061; 83735; 83874; 84443; 84484; 85025; 85610; 85730; 87081; 90686; 93005; 93041; 93306; 96365; 96366

== ENCOUNTER 2023-01-20 10:59 | Observation (INO) | payer MEDICARE ==
[~2023-01-20] VITALS: Ht 160 cm; Wt 82.9 kg
[~2023-01-20 10:59] MED LIST: APIX5TAB PO; ASPI-816 PO; METO50TA7 PO
--- NOTE | 2023-01-20 11:44 | ED Cardiac General ---
History of Present Illness General Chief Complaint: Cardiac/General Problems Stated Complaint: SOB | DIZZY | BLURRED VISION Nursing Triage Note: ARRIVED VIA AMB TO ROOM 09 WITH COMPLAINTS OF A FIB, SOA, BLURRED VISION STARTING YESTERDY. Source: patient Exam Limitations: no limitations (KARLIE DECKER APRN) History of Present Illness Date Seen by Provider: January 20, 2023 Time Seen by Provider: 11:29 Initial Comments 77-year-old female presents to the ED with complaints of shortness of air, blurry vision, dizziness and weakness for the last few days. She reports that she feels as though she is going to pass out when only walking a few steps. She reports that last night she noticed her heart fluttering rapidly. She reports she had some chest heaviness with this, also reported chest heaviness this morning. She also reports some abdominal cramping and soft stools, as well as nausea. She states that she has not taken her metoprolol or lisinopril hydrochlorothiazide for approximately 2 days due to blood pressure being low. She states that when she feels dizzy, she checks her blood pressure and it reads low, so she does not take medication. Upon arrival patient's blood pressure was elevated at 174 systolic, during my assessment systolic blood pressure went down to 80, repeat blood pressure showed systolic blood pressure 91. Heart rate fluctuating between 120s to 140s in atrial fibrillation. (KARLIE DECKER APRN) Allergies and Home Medications Allergies Coded Allergies: No Known Drug Allergies (Unverified , 07/03/18) Patient Home Medication List Home Medication List Reviewed: Yes (KARLIE DECKER APRN) Apixaban (Eliquis) 5 Mg Tablet, 5 MG PO BID Prescribed by: MIKE DEUTSCH on 07/04/18 1201 Metoprolol Succinate (Metoprolol Succinate) 50 Mg Tab.er.24h, 50 MG PO DAILY Prescribed by: MIKE DEUTSCH on 07/04/18 1201 Review of Systems Review of Systems Constitutional: see HPI (KARLIE DECKER APRN) Past Udbrgme-Hpdaoi-Abfzav Hx Patient Social History Tobacco Use?: No Substance use?: No Alcohol Use?: No (KARLIE DECKER APRN) Immunizations Up To Date Second COVID19 Vaccination Sebastián: UNKNOWN COVID19 Vaccine Glaze Handler: UNKNOWN (KARLIE DECKER APRN) Seasonal Allergies Seasonal Allergies: No (KARLIE DECKER APRN) Past Medical History Surgeries: Yes (anterior-posterior pelvic repair) Hysterectomy Respiratory: No Cardiac: No 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 3.2oz. 85.610120se; 31.00 BMI Method:Stated General Appearance: No Apparent Distress, WD/WN Neck: Non Tender, Supple Respiratory: Lungs Clear, Normal Breath Sounds, No Accessory Muscle Use, No Respiratory Distress Cardiovascular: Regular Rate, Rhythm Extremity: Normal Range of Motion Neurologic/Psychiatric: Alert, Normal Mood/Affect Skin: Normal Color, Warm/Dry (KARLIE DECKER APRN) Progress/Results/Core Measures Results/Orders Lab Results Laboratory Tests Test 01/20/23 11:25 Range/Units White Blood Count 7.7 4.3-11.0 10^3/uL Red Blood Count 4.35 3.80-5.11 10^6/uL Hemoglobin 13.9 11.5-16.0 g/dL Hematocrit 41 35-52 % Mean Corpuscular Volume 94 80-99 fL Mean Corpuscular Hemoglobin 32 25-34 pg Mean Corpuscular Hemoglobin Concent 34 32-36 g/dL Red Cell Distribution Width 13.0 10.0-14.5 % Platelet Count 247 130-400 10^3/uL Mean Platelet Volume 9.2 9.0-12.2 fL Immature Granulocyte % (Auto) 0 % Neutrophils (%) (Auto) 67 42-75 % Lymphocytes (%) (Auto) 25 12-44 % Monocytes (%) (Auto) 6 0-12 % Eosinophils (%) (Auto) 1 0-10 % Basophils (%) (Auto) 0 0-10 % Neutrophils # (Auto) 5.2 1.8-7.8 10^3/uL Lymphocytes # (Auto) 1.9 1.0-4.0 10^3/uL Monocytes # (Auto) 0.5 0.0-1.0 10^3/uL Eosinophils # (Auto) 0.1 0.0-0.3 10^3/uL Basophils # (Auto) 0.0 0.0-0.1 10^3/uL Immature Granulocyte # (Auto) 0.0 0.0-0.1 10^3/uL Prothrombin Time 14.0 12.2-14.7 SEC INR Comment 1.0 0.8-1.4 Activated Partial Thromboplast Time 30 24-35 SEC D-Dimer 0.94 H 0.00-0.49 UG/ML Sodium Level 139 135-145 MMOL/L Potassium Level 4.1 3.6-5.0 MMOL/L Chloride Level 107 98-107 MMOL/L Carbon Dioxide Level 20 L 21-32 MMOL/L Anion Gap 12 5-14 MMOL/L Blood Urea Nitrogen 22 H 7-18 MG/DL Creatinine 0.87 0.60-1.30 MG/DL Estimat Glomerular Filtration Rate 68 BUN/Creatinine Ratio 25 Glucose Level 105 70-105 MG/DL Calcium Level 9.7 8.5-10.1 MG/DL Corrected Calcium 10.0 8.5-10.1 MG/DL Magnesium Level 1.7 1.6-2.4 MG/DL Total Bilirubin 0.8 0.1-1.0 MG/DL Aspartate Amino Transf (AST/SGOT) 16 5-34 U/L Alanine Aminotransferase (ALT/SGPT) 11 0-55 U/L Alkaline Phosphatase 74 40-136 U/L Troponin I 0.082 H <0.028 NG/ML B-Type Natriuretic Peptide 482.2 H <100.0 PG/ML Total Protein 6.5 6.4-8.2 GM/DL Albumin 3.6 3.2-4.5 GM/DL Thyroid Stimulating Hormone (TSH) 1.64 0.35-4.94 UIU/ML (REMBERTO JUAREZ MD) Vital Signs/I&O 5/5/23 11:00 Temp 36.3 Pulse 144 Resp 16 B/P (MAP) 174/158 (163) Pulse Ox 97 O2 Delivery Room Air 01/21/23 00:00 Intake Total 500 ml Balance 500 ml (REMBERTO JUAREZ MD) Blood Pressure Mean: 163 Progress Progress Note : Time: 11:43 Progress Note Patient seen and evaluated, resting comfortably in bed, no acute distress. Based on exam and symptoms, work-up initiated including CBC, CMP, troponin, magnesium, coags, BNP, D-dimer, chest x-ray, EKG. 1240 Labs and x-ray reviewed. CBC grossly normal. CMP shows slightly decreased CO2 20, slightly elevated BUN 22, troponin elevated 0.082, BNP elevated 482.2, magnesium normal 1.7, coags normal. D-dimer elevated 0.94. Chest x-ray negative for acute findings. CT angio chest PE rule out ordered for elevated D-dimer. Patient's heart rhythm converted to normal sinus prior to going to CT. Patient assessed after CT, states she feels a lot better, states she did not get dizzy when she got up to the wheelchair to go to CT. Patient's heart rate currently 72, blood pressure normal at 133/87. EKG repeated, shows normal sinus rhythm. 1302 CT angio negative for PE. I called and spoke with Dr. Valente, cardiology. He recommends admission due to elevated troponin. He would like patient started on Cardizem 240 mg now and daily as well as Eliquis 5 mg now and twice daily. He would also like an echo to be completed during patient's stay. 1314: Spoke with Dr. Harvey, hospitalist, regarding patient. She will admit patient for observation to cardiac stepdown. She will place admission orders. (KARLIE DECKER APRN) Initial ECG Impression Date: January 20, 2023 Initial ECG Impression Time: 11:14 Initial ECG Rate: 145 Initial ECG Rhythm: A Fib/Flutter Initial ECG Intervals: Normal Initial ECG Impression: Atrial Fibrillation w/RVR EKG : EKG Time: 12:21 Rhythm: Normal Sinus Intervals: Normal ECG Comparisson: Changed ECG Impression: Nonspecific Changes (KARLIE DECKER APRN) Diagnostic Imaging Diagonstic Imaging: Xray Plain Films/CT/US/NM/MRI: chest Comments [facility] [place], [place] NAME: MARY [facility] REC#: [id number] PT STATUS: REG ER : 1945 PHYSICIAN: KARLIE DECKER APRN ADMIT DATE: 01/20/23/ER Draft Date of Exam:01/20/23 CHEST 1 VIEW, AP/PA ONLY INDICATION: Slurred speech, blurred vision. COMPARISON: 07/03/2018 FINDINGS: The lungs are clear. There is no failure pattern, effusion or pneumothorax. IMPRESSION: Negative. Dictated on workstation # [id number] Dict: 01/20/23 1202 Trans: 01/20/23 1204 ACB [id number] Interpreted by: LORA GARCIA Electronically signed by: Yenifer Imaging: CT Plain Films/CT/US/NM/MRI: chest Comments [facility]. [place], [place] NAME: MARY [facility]ITT [facility] REC#: [id number] PT STATUS: REG ER : 1945 PHYSICIAN: KARLIE DECKER APRN ADMIT DATE: 01/20/23/ER Draft Date of Exam:01/20/23 CT ANGIO CHEST W (R/O PE) INDICATION: Elevated D-dimer and dyspnea. CTA of the thorax is performed after bolus intravenous administration of iodinated contrast. Three-D reformatted images are produced. Automatic exposure controls were utilized to keep dose as low as reasonably achievable. There is good opacification of pulmonary arteries without intraluminal filling defect. Thoracic aorta is unopacified but is of normal caliber. Lungs are clear. There is no significant pleural or pericardial fluid. No pathologically enlarged adenopathy is seen. There is mild diffuse thoracic spondylosis. IMPRESSION: No CTA evidence of pulmonary embolism or other acute abnormality within the thorax. Dictated on workstation # [id number] Dict: 01/20/23 1244 Trans: 01/20/23 1251 ACB [id number] Interpreted by: LORA ROMERO MD Electronically signed by: (KARLIE DECKER APRN) Departure Communication (Admissions) Time/Spoke to Admitting Phy: 13:14 Dr. White, hospitalist. See progress note. Time/Spoke to Consulting Phy: 13:02 Dr. Valente, cardiology, see progress note. (KARLIE DECKER APRN) Impression Primary Impression: Atrial fibrillation with RVR Additional Impression: Elevated troponin Disposition: ADMITTED INPATIENT Condition: Stable Admissions Decision to Admit Reason: Admit from ER (General) Decision to Admit/Date: January 20, 2023 Time/Decision to Admit Time: 13:02 (KARLIE DECKER APRN) Departure-Patient Inst. Referrals: NO,LOCAL PHYSICIAN (PCP) Primary Care Physician ATTENDING PHYSICIAN NOTE: I was physically present as attending physician in the emergency department during the care of this patient, but I was not directly involved in the decision making or delivery of care for this patient. (REMBERTO JUAREZ MD) KARLIE DECKER APRN January 20, 2023 11:44 REMBERTO JUAREZ MD January 21, 2023 06:27
[2023-01-20 11:45] LABS: BASOPHILS % (AUTO) 0 % (0-10); EOSINOPHILS # (AUTO) 0.1 10^3/uL (0.0-0.3); EOSINOPHILS % (AUTO) 1 % (0-10); HEMATOCRIT 41 % (35-52); HEMOGLOBIN 13.9 g/dL (11.5-16.0); LYMPHOCYTES # (AUTO) 1.9 10^3/uL (1.0-4.0); LYMPHOCYTES % (AUTO) 25 % (12-44); MEAN CORPUSCULAR HEMOGLOBIN 32 pg (25-34); MEAN CORPUSCULAR HGB CONC 34 g/dL (32-36); MEAN CORPUSCULAR VOLUME 94 fL (80-99); MEAN PLATELET VOLUME 9.2 fL (9.0-12.2); MONOCYTES # (AUTO) 0.5 10^3/uL (0.0-1.0); MONOCYTES % (AUTO) 6 % (0-12); NEUTROPHILS # (AUTO) 5.2 10^3/uL (1.8-7.8); NEUTROPHILS % (AUTO) 67 % (42-75); PLATELET COUNT 247 10^3/uL (130-400); WHITE BLOOD COUNT 7.7 10^3/uL (4.3-11.0)
[2023-01-20 11:47] LABS: ALBUMIN 3.6 GM/DL (3.2-4.5)
[2023-01-20 11:48] LABS: POTASSIUM 4.1 MMOL/L (3.6-5.0)
[2023-01-20 11:49] LABS: CALCIUM 9.7 MG/DL (8.5-10.1)
[2023-01-20 11:50] LABS: TOTAL PROTEIN 6.5 GM/DL (6.4-8.2)
[2023-01-20 11:52] LABS: BILIRUBIN,TOTAL 0.8 MG/DL (0.1-1.0)
[2023-01-20 11:54] LABS: CREATININE SERUM 0.87 MG/DL (0.60-1.30)
[2023-01-20 11:56] LABS: MAGNESIUM 1.7 MG/DL (1.6-2.4)
--- NOTE | 2023-01-20 12:04 | Diagnostic Imaging Report ---
INDICATION: Slurred speech, blurred vision. COMPARISON: 07/03/2018 FINDINGS: The lungs are clear. There is no failure pattern, effusion or pneumothorax. IMPRESSION: Negative. Dictated by: Dictated on workstation # [id number]
[2023-01-20] MEDS ORDERED: IOHEXOL 350 MG/ML 100 ML (OMNIPAQUE 350) VIAL IV ONE (12:15)
[2023-01-20] MEDS ORDERED: NS 100 ML (IVPB) BAG IV ONE (12:15)
[2023-01-20] MEDS ORDERED: HOLD METFORMIN - RECEIVED CONTRAST 20 ML VIAL IV SCH (12:15)
[2023-01-20] MEDS ORDERED: NS IV 1000 ML 1,000 ML IV SCH (12:45)
--- NOTE | 2023-01-20 12:51 | Diagnostic Imaging Report ---
INDICATION: Elevated D-dimer and dyspnea. CTA of the thorax is performed after bolus intravenous administration of iodinated contrast. Three-D reformatted images are produced. Automatic exposure controls were utilized to keep dose as low as reasonably achievable. There is good opacification of pulmonary arteries without intraluminal filling defect. Thoracic aorta is unopacified but is of normal caliber. Lungs are clear. There is no significant pleural or pericardial fluid. No pathologically enlarged adenopathy is seen. There is mild diffuse thoracic spondylosis. IMPRESSION: No CTA evidence of pulmonary embolism or other acute abnormality within the thorax. Dictated by: Dictated on workstation # [id number]
[2023-01-20] MEDS ORDERED: NS IV 500 ML 500 ML IV ONE (13:00)
[2023-01-20] MEDS ORDERED: APIXABAN 5 MG (ELIQUIS) TABLET PO ONE (13:15)
--- NOTE | 2023-01-20 13:24 | History & Physical ---
History of Present Illness HPI/Chief Complaint CC: AF RVR HPI: This is a 77yoWF clinic patient of [facility] who has a h/o HTN and AF who presented to the ER with palpitations and vague neuro complaints who was found to have AF RVR so Cardiology recommended OAC and Cardizem PO after she converted in the ER after IV meds were given. Currently she is doing better and is less dizzy. She has never had a sleep study and I suspect JAYMIE so I recommended that as outpatient. Source: patient Exam Limitations: no limitations Date Seen 01/20/23 Time Seen by a Provider: 18:00 Attending Physician No,Local Physician PCP Admitting Physician: Attending Physician: Referring Physician Date of Admission Home Medications & Allergies Home Medications Reviewed patient Home Medication Reconciliation performed by pharmacy medication reconciliations tv technician and/or nursing. Patients Allergies have been reviewed. Allergies Allergies Coded Allergies No Known Drug Allergies (Gpacjzbfjt32/16/18) Past Kvszmxr-Mbgvwk-Oxrwkq Hx Past Med/Social Hx: Reviewed Nursing Past Med/Soc Hx, Reviewed and Corrections made Patient Social History Marrital Status: single Employed/Student: retired Alcohol Use: Denies Use Smoking Status: Never a Smoker Seasonal Allergies Seasonal Allergies: No Past Medical History Surgeries: Hysterectomy Cardiac: Atrial Fibrillation, High Cholesterol, Hypertension Hysterectomy Endocrine: Diabetes, Non-Insulin dep Family History Colon cancer 19 MOTHER Hypertension 19 MOTHER G8 BROTHER Review of Systems Constitutional: see HPI, malaise, weakness Cardiovascular: palpitations Physical Exam Physical Exam Vital Signs Vital Signs - First Documented 01/20/23 11:00 Temp 36.3 Pulse 144 Resp 16 B/P (MAP) 174/158 (163) Pulse Ox 97 O2 Delivery Room Air Capillary Refill : Less Than 3 Seconds Height, Weight, BMI Height: 5'4.00" Weight: 189lbs. 3.2oz. 85.447350rb; 31.00 BMI Method:Stated General Appearance: No Apparent Distress, WD/WN, Chronically ill Neck: Non Tender, Supple Respiratory: Lungs Clear, Normal Breath Sounds, No Accessory Muscle Use, No Respiratory Distress Cardiovascular: Regular Rate, Rhythm Extremity: Normal Range of Motion Neurologic/Psychiatric: Alert, Normal Mood/Affect Skin: Normal Color, Warm/Dry Results Results/Procedures Labs Laboratory Tests 01/20/23 11:25 01/21/23 04:20 Patient resulted labs reviewed. Assessment/Plan Admission Diagnosis Assessment: AF RVR HTN HLP DM Suspected JAYMIE Plan: OAC Cards consult Admission Status: Observation SKYLER RENDON DO January 20, 2023 13:24
--- NOTE | 2023-01-20 13:33 | Consultation-Cardiology ---
HPI-Cardiology Cardiology Consultation: Date of Consultation 01/20/23 Time Seen by a Provider: 13:35 Date of Admission 01-20-23 Attending Physician No,Local Physician Admitting Physician Admitting Physician: Attending Physician: Consulting Physician LANE MARITNEZ HPI: Chief Complaint: PAF Ms. Valenzuela is a 77 yr old female being admitted from the ED to [facility]. She has been seen in the ED. She reports increasing weakness, fatigue and SOB for the last several weeks. She reports she was having dizziness with episodes of blurred vision. She reports she would check her blood pressure at home and her BP would be low. She states last night she woke up from sleep with palpitations and some heaviness in her chest, but she was able to go to sleep. She woke up this morning with continued symptoms of palpitations, dizziness, blurred vision and heaviness in her chest. She came to the ED and was found to be in a-fib with RVR. She has since converted to SR. She reports he symptoms have resolved. She reports she usually take Toprol at home, but has not taken it for several days d/t low BP. No c/o LE swelling. No c/o n/v/d. No c/o fever or chills. Review of Systems-Cardiology Review of Systems Constitutional: No chills, No fever; lightheadedness Eyes: As described under HPI Ears/Nose/Throat: No epistaxis, No recent hearing loss Respiratory: As described under HPI Cardiovascular: As described under HPI Gastrointestinal: No constipation, No diarrhea, No nausea, No vomiting Genitourinary: No dysuria Musculoskeletal: As describe under HPI Skin: No rash on exposed areas, No ulcerations on exposed areas Psychiatric/Neurological: No anxiety, No depression, No seizure, No focal weakness, No syncope Hematologic: No bleeding abnormalities JOI-Wpnlgt-Jnlvyv Hx Patient Social History Have you traveled recently?: No Alcohol Use?: No Past Medical History PMH As described under Assessment. Family Medical History Family Medical History: She reports her mother and brother have HTN. She reports a son who has CAD. Family History: Colon cancer 19 MOTHER Hypertension 19 MOTHER G8 BROTHER Allergies and Home Medications Allergies Coded Allergies: No Known Drug Allergies (Unverified , 07/03/18) Patient Home Medication List Diltiazem HCl (Diltiazem 24Hr ER) 240 Mg Cap.er.24h, 240 MG PO DAILY Prescribed by: SKYLER RENDON on 01/21/23 1148 Lisinopril (Lisinopril) 10 Mg Tablet, 10 MG PO DAILY PRN for elevated bp Prescribed by: SKYLER RENDON on 01/21/23 1148 Rivaroxaban (Xarelto Tablet) 20 Mg Tablet, 20 MG PO DAILY@1700 Prescribed by: BERNADETTE NAM on 01/21/23 1204 Discontinued Medications Apixaban (Eliquis) 5 Mg Tablet, 5 MG PO BID Prescribed by: MIKE DEUTSCH on 07/04/18 120 Last Action: Discontinued Metoprolol Succinate (Metoprolol Succinate) 50 Mg Tab.er.24h, 50 MG PO DAILY Prescribed by: MIKE DEUTSCH on 07/04/18 120 Physical Exam-Cardiology Physical Exam Vital Signs/I&O Capillary Refill : Less Than 3 Seconds Constitutional: AAO x 3, well-developed, well-nourished HEENT: PERRL, hearing is well preserved, oral hygience is good Neck: No carotid bruit; carotid pulses are 2 + bilaterally Respiratory: No accessory muscle use, No respiratory distress; chest expansion is symmetric, chest is bilaterally symmetric, lungs clear to auscultation Cardiovascular: regular rate-rhythm; No JVD; S1 and S2 Gastrointestinal: No tender; soft, round; No guarding; audible bowel sounds Extremities: no lower extremity edema bilateral Neurologic/Psychiatric: grossly intact (moves all extremities) Skin: No rash on exposed areas, No ulcerations on exposed areas Data Review Labs Radiology NAME: [facility]UELA [facility] REC#: [id number] PT STATUS: REG ER : 1945 PHYSICIAN: KARLIE DECKER APRN ADMIT DATE: 01/20/23/ER Draft Date of Exam:01/20/23 CHEST 1 VIEW, AP/PA ONLY INDICATION: Slurred speech, blurred vision. COMPARISON: 07/03/2018 FINDINGS: The lungs are clear. There is no failure pattern, effusion or pneumothorax. IMPRESSION: Negative. 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
[2023-01-20] MEDS ORDERED: ANTACID SUSP 30 ML UDC (MYLANTA) PO PRN (14:15)
[2023-01-20] MEDS ORDERED: diphenhydrAMINE 50 MG/ML INJ (BENADRYL) IVP PRN (14:15)
[2023-01-20] MEDS ORDERED: polyethylene glycoL POWDER 17 GM (MIRALAX) PACK PO PRN (14:15)
[2023-01-20] MEDS ORDERED: diphenhydrAMINE 25 MG TAB (BENADRYL) PO PRN (14:15)
[2023-01-20] MEDS ORDERED: MELATONIN 3 MG TABLET PO PRN (14:15)
[2023-01-20] MEDS ORDERED: BISACODYL 10 MG SUPP (DULCOLAX) PR PRN (14:15)
[2023-01-20] MEDS ORDERED: LACTULOSE SYRUP 10GM/15ML (ENULOSE) 30ML UDC PO PRN (14:15)
[2023-01-20] MEDS ORDERED: HYDROmorphone 2 MG/ML VIAL (DILAUDID) IV PRN (14:15)
[2023-01-20] MEDS ORDERED: ONDANSETRON 4 MG/2 ML (SDV) Z0FRAN IV PRN (14:15)
[2023-01-20] MEDS ORDERED: CALCIUM CARBONATE 500 MG (TUMS) TAB.CHEW PO PRN (14:15)
[2023-01-20] MEDS ORDERED: ONDANSETRON 4 MG (ZOFRAN) ORAL DISSOLVE TAB PO PRN (14:15)
[2023-01-20] MEDS ORDERED: MILK OF MAGNESIA 400 MG/5 ML 30 ML UDC PO PRN (14:15)
[2023-01-20] MEDS ORDERED: NALOXONE 0.4 MG/ML 1 ML (NARCAN) VIAL IV PRN (14:15)
[2023-01-20] MEDS ORDERED: ALPRAZolam 0.5 MG (XANAX) TAB PO PRN (14:15)
[2023-01-20 15:30] VITALS: BP 176/92
--- NOTE | 2023-01-20 15:34 | Consultation-Cardiology ---
HPI-Cardiology Cardiology Consultation: Date of Consultation 01/20/23 Time Seen by a Provider: 15:10 Date of Admission Attending Physician Kourtney,Local Physician Admitting Physician Admitting Physician: Radha White DO Attending Physician: Radha White DO Consulting Physician BERNADETTE NAM MD, MA, FACP, FACC, FSCAI, CCDS Physician requesting consult: Dr White HPI: Chief Complaint: Reason for Card consult: PAF Ms. Valenzuela is a 77 yr old female being admitted from the ED to [facility]. She has been seen in the ED. She reports increasing weakness, fatigue and SOB for the last several weeks. She reports she was having dizziness with episodes of blurred vision. She reports she would check her blood pressure at home and her BP would be low. She states last night she woke up from sleep with palpitations and some heaviness in her chest, but she was able to go to sleep. She woke up this morning with continued symptoms of palpitations, dizziness, blurred vision and heaviness in her chest. She came to the ED and was found to be in a-fib with RVR. She has since converted to SR. She reports he symptoms have resolved. She reports she usually take Toprol at home, but has not taken it for several days d/t low BP. No c/o LE swelling. No c/o n/v/d. No c/o fever or chills. Review of Systems-Cardiology Review of Systems Constitutional: No chills, No fever; lightheadedness Eyes: As described under HPI Ears/Nose/Throat: No epistaxis, No recent hearing loss Respiratory: As described under HPI Cardiovascular: As described under HPI Gastrointestinal: No constipation, No diarrhea, No nausea, No vomiting Genitourinary: No dysuria Musculoskeletal: As describe under HPI Skin: No rash on exposed areas, No ulcerations on exposed areas Psychiatric/Neurological: No anxiety, No depression, No seizure, No focal weakness, No syncope Hematologic: No bleeding abnormalities EJO-Mmebsu-Mgrkss Hx Patient Social History Have you traveled recently?: No Alcohol Use?: No Pt feels they are or have been: No Past Medical History PMH As described under Assessment. Family Medical History Family Medical History: She reports her mother and brother have HTN. She reports a son who has CAD. Family History: Colon cancer 19 MOTHER Hypertension 19 MOTHER G8 BROTHER Allergies and Home Medications Allergies Coded Allergies: No Known Drug Allergies (Unverified , 07/03/18) Patient Home Medication List Home Medication List Reviewed: Yes Apixaban (Eliquis) 5 Mg Tablet, 5 MG PO BID Prescribed by: MIKE DEUTSCH on 07/04/18 1201 Metoprolol Succinate (Metoprolol Succinate) 50 Mg Tab.er.24h, 50 MG PO DAILY Prescribed by: MIKE DEUTSCH on 07/04/18 1201 Physical Exam-Cardiology Physical Exam Vital Signs/I&O 01/20/23 01/20/23 01/20/23 11:00 14:30 14:30 Temp 36.3 Pulse 144 70 Resp 16 16 B/P (MAP) 174/158 (163) 125/76 Pulse Ox 97 96 95 O2 Delivery Room Air Room Air Room Air Capillary Refill : Less Than 3 Seconds Constitutional: AAO x 3, well-developed, well-nourished HEENT: PERRL, hearing is well preserved, oral hygience is good Neck: No carotid bruit; carotid pulses are 2 + bilaterally Respiratory: No accessory muscle use, No respiratory distress; chest expansion is symmetric, chest is bilaterally symmetric, lungs clear to auscultation Cardiovascular: regular rate-rhythm; No JVD; S1 and S2 Gastrointestinal: No tender; soft, round; No guarding; audible bowel sounds Extremities: no lower extremity edema bilateral Neurologic/Psychiatric: grossly intact (moves all extremities) Skin: No rash on exposed areas, No ulcerations on exposed areas Data Review Labs Laboratory Tests 01/20/23 11:25: White Blood Count 7.7, Red Blood Count 4.35, Hemoglobin 13.9, Hematocrit 41, Mean Corpuscular Volume 94, Mean Corpuscular Hemoglobin 32, Mean Corpuscular Hemoglobin Concent 34, Red Cell Distribution Width 13.0, Platelet Count 247, Mean Platelet Volume 9.2, Immature Granulocyte % (Auto) 0, Neutrophils (%) (Auto) 67, Lymphocytes (%) (Auto) 25, Monocytes (%) (Auto) 6, Eosinophils (%) (Auto) 1, Basophils (%) (Auto) 0, Neutrophils # (Auto) 5.2, Lymphocytes # (Auto) 1.9, Monocytes # (Auto) 0.5, Eosinophils # (Auto) 0.1, Basophils # (Auto) 0.0, Immature Granulocyte # (Auto) 0.0, Prothrombin Time 14.0, INR Comment 1.0, Activated Partial Thromboplast Time 30, D-Dimer 0.94H, Sodium Level 139, Potassium Level 4.1, Chloride Level 107, Carbon Dioxide Level 20L, Anion Gap 12, Blood Urea Nitrogen 22H, Creatinine 0.87, Estimat Glomerular Filtration Rate 68, BUN/Creatinine Ratio 25, Glucose Level 105, Calcium Level 9.7, Corrected Calcium 10.0, Magnesium Level 1.7, Total Bilirubin 0.8, Aspartate Amino Transf (AST/SGOT) 16, Alanine Aminotransferase (ALT/SGPT) 11, Alkaline Phosphatase 74, Troponin I 0.082H, B-Type Natriuretic Peptide 482.2H, Total Protein 6.5, Albumin 3.6, Thyroid Stimulating Hormone (TSH) 1.64 A/P-Cardiology Assessment/Admission Diagnosis PAF with RVR - converted to SR - first diagnosed on 07/03/18 - Echocardiogram: 07/03/18: LVEF 55-60%, LA mildly to mod dilated, PASP 30-35 mmHg - has not been compliant with OAC for several yrs per pt report - Echo on 01/20/23: LVEF 55-60%, trivial AI, PASP 30-35 mmHg Mild troponin elevation - Angelyley Type 2 AK secondary to a-fib with RVR HTN HLD Chronic back pain/knee pain - takes OTC Yovany ASA arthritis Fam h/o early CAD (son) Discussion and Recomendations PAF with RVR - H/O PAF - has converted to SR with controlled rate - Non-compliance with OAC - start OAC - Continue Cardizem CD 240mg daily - Echocardiogram to eval structure and function Chest pressure while in a-fib with RVR - resolved after she converted to SR Monitor lab closely Replace electrolytes as indicated Further recs will be based on her hospital course We would like to thank medical services for this consult BERNADETTE NAM MD FACP [facility] CCDS January 20, 2023 15:34
[2023-01-20 16:33] VITALS: BP 176/92
[2023-01-20] MEDS ORDERED: RT-ALBUTEROL SULF 2.5 MG/3 ML PRE-MIX VIAL INH PRN (16:45)
[2023-01-20] MEDS: NS IV 1000 ML 1,000 ML IV SCH (16:46)
[2023-01-20] MEDS: ACETAMINOPHEN 325 MG TABLET PO PRN (16:52)
[2023-01-20 19:35] VITALS: BP 100/67
[2023-01-20] MEDS ORDERED: APIXABAN 5 MG (ELIQUIS) TABLET PO SCH (21:00)
[2023-01-20] MEDS: DOCUSATE SODIUM 100 MG (COLACE) CAP PO SCH (21:44)
[2023-01-20] MEDS: SENNOSIDES 8.6 MG (SENOKOT) TAB PO SCH (21:44)
[2023-01-20] MEDS ORDERED: APIXABAN 5 MG (ELIQUIS) TABLET PO NR (22:00)
[2023-01-21] VITALS: BP 153/68
[2023-01-21 04:00] VITALS: BP 168/91
[2023-01-21 04:34] LABS: BASOPHILS % (AUTO) 1 % (0-10); EOSINOPHILS # (AUTO) 0.1 10^3/uL (0.0-0.3); EOSINOPHILS % (AUTO) 2 % (0-10); HEMATOCRIT 36 % (35-52); HEMOGLOBIN 12.5 g/dL (11.5-16.0); LYMPHOCYTES % (AUTO) 33 % (12-44); MEAN CORPUSCULAR HEMOGLOBIN 32 pg (25-34); MEAN CORPUSCULAR HGB CONC 34 g/dL (32-36); MEAN CORPUSCULAR VOLUME 94 fL (80-99); MONOCYTES # (AUTO) 0.4 10^3/uL (0.0-1.0); MONOCYTES % (AUTO) 6 % (0-12); NEUTROPHILS # (AUTO) 3.6 10^3/uL (1.8-7.8); NEUTROPHILS % (AUTO) 59 % (42-75); PLATELET COUNT 201 10^3/uL (130-400); WHITE BLOOD COUNT 6.1 10^3/uL (4.3-11.0)
[2023-01-21 04:47] LABS: ALBUMIN 3.5 GM/DL (3.2-4.5); POTASSIUM 3.9 MMOL/L (3.6-5.0)
[2023-01-21 04:48] LABS: CALCIUM 9.1 MG/DL (8.5-10.1)
[2023-01-21 04:51] LABS: BILIRUBIN,TOTAL 0.8 MG/DL (0.1-1.0)
[2023-01-21 04:53] LABS: CREATININE SERUM 0.77 MG/DL (0.60-1.30)
[2023-01-21] MEDS: NS IV 1000 ML 1,000 ML IV SCH (06:52)
[2023-01-21 07:44] VITALS: BP 160/84
[2023-01-21] MEDS: SENNOSIDES 8.6 MG (SENOKOT) TAB PO SCH (08:35)
[2023-01-21] MEDS: DOCUSATE SODIUM 100 MG (COLACE) CAP PO SCH (08:35)
[2023-01-21] MEDS ORDERED: ASPIRIN 81 MG CHEW (CHILDREN'S ASA) PO SCH (09:00)
--- NOTE | 2023-01-21 11:12 | Progress Note - Cardiology ---
Cardiology SOAP Progress Note Subjective: No cp or palp or syncope or shortness of breath No n/v/d No focal or gen weakness No swelling Feels well and wishes to go home Objective: I&O/Vital Signs 01/21/23 01/21/23 01/21/23 01/21/23 00:00 01:00 04:00 04:00 Temp 36.3 36.4 Pulse 59 62 59 Resp 20 13 B/P (MAP) 153/68 (96) 168/91 (116) Pulse Ox 96 95 O2 Delivery Room Air Room Air 01/21/23 01/21/23 01/21/23 07:00 07:44 08:00 Temp 36.5 Pulse 78 65 Resp 15 B/P (MAP) 160/84 (109) Pulse Ox 94 O2 Delivery Room Air Room Air 01/21/23 00:00 Intake Total 1420 ml Balance 1420 ml Weight (Pounds): 189 Weight (Ounces): 3.2 Weight (Calculated Kilograms): 85.683069 Constitutional: AAO x 3, well-developed, well-nourished Respiratory: No accessory muscle use, No respiratory distress; chest expansion is symmetric, chest is bilaterally symmetric, lungs clear to auscultation Cardiovascular: regular rate-rhythm; No JVD; S1 and S2 Gastrointestional: No tender; soft, round; No guarding; audible bowel sounds Extremities: no lower extremity edema bilateral Neurologic/Psychiatric: grossly intact (moves all extremities) Skin: No rash on exposed areas, No ulcerations on exposed areas Results/Procedures: Labs Laboratory Tests 01/20/23 11:25: White Blood Count 7.7, Red Blood Count 4.35, Hemoglobin 13.9, Hematocrit 41, Mean Corpuscular Volume 94, Mean Corpuscular Hemoglobin 32, Mean Corpuscular Hemoglobin Concent 34, Red Cell Distribution Width 13.0, Platelet Count 247, Mean Platelet Volume 9.2, Immature Granulocyte % (Auto) 0, Neutrophils (%) (Auto) 67, Lymphocytes (%) (Auto) 25, Monocytes (%) (Auto) 6, Eosinophils (%) (Auto) 1, Basophils (%) (Auto) 0, Neutrophils # (Auto) 5.2, Lymphocytes # (Auto) 1.9, Monocytes # (Auto) 0.5, Eosinophils # (Auto) 0.1, Basophils # (Auto) 0.0, Immature Granulocyte # (Auto) 0.0, Prothrombin Time 14.0, INR Comment 1.0, Activated Partial Thromboplast Time 30, D-Dimer 0.94H, Sodium Level 139, Potassium Level 4.1, Chloride Level 107, Carbon Dioxide Level 20L, Anion Gap 12, Blood Urea Nitrogen 22H, Creatinine 0.87, Estimat Glomerular Filtration Rate 68, BUN/Creatinine Ratio 25, Glucose Level 105, Calcium Level 9.7, Corrected Calcium 10.0, Magnesium Level 1.7, Total Bilirubin 0.8, Aspartate Amino Transf (AST/SGOT) 16, Alanine Aminotransferase (ALT/SGPT) 11, Alkaline Phosphatase 74, Troponin I 0.082H, B-Type Natriuretic Peptide 482.2H, Total Protein 6.5, Albumin 3.6, Thyroid Stimulating Hormone (TSH) 1.64 01/21/23 04:20: White Blood Count 6.1, Red Blood Count 3.87, Hemoglobin 12.5, Hematocrit 36, Mean Corpuscular Volume 94, Mean Corpuscular Hemoglobin 32, Mean Corpuscular Hemoglobin Concent 34, Red Cell Distribution Width 13.2, Platelet Count 201, Mean Platelet Volume 9.0, Immature Granulocyte % (Auto) 0, Neutrophils (%) (Auto) 59, Lymphocytes (%) (Auto) 33, Monocytes (%) (Auto) 6, Eosinophils (%) (Auto) 2, Basophils (%) (Auto) 1, Neutrophils # (Auto) 3.6, Lymphocytes # (Auto) 2.0, Monocytes # (Auto) 0.4, Eosinophils # (Auto) 0.1, Basophils # (Auto) 0.0, Immature Granulocyte # (Auto) 0.0, Sodium Level 142, Potassium Level 3.9, Chloride Level 111H, Carbon Dioxide Level 20L, Anion Gap 11, Blood Urea Nitrogen 22H, Creatinine 0.77, Estimat Glomerular Filtration Rate 78, BUN/Creatinine Ratio 29, Glucose Level 91, Calcium Level 9.1, Corrected Calcium 9.5, Total Bilirubin 0.8, Aspartate Amino Transf (AST/SGOT) 16, Alanine Aminotransferase (ALT/SGPT) 10, Alkaline Phosphatase 74, Total Protein 6.0L, Albumin 3.5 Laboratory Tests 01/20/23 11:25 01/21/23 04:20 A/P: Assessment: PAF with RVR - converted to SR - first diagnosed on 07/03/18 - Echocardiogram: 07/03/18: LVEF 55-60%, LA mildly to mod dilated, PASP 30-35 mmHg - has not been compliant with OAC for several yrs per pt report - Echo on 01/20/23: LVEF 55-60%, trivial AI, PASP 30-35 mmHg Mild troponin elevation - Type 2 DC secondary to a-fib with RVR HTN HLD Chronic back pain/knee pain - takes OTC Yovany ASA arthritis Fam h/o early CAD (son) Plan: * I had a detailed discussion with her regarding her CV issues * She feels well and insists on going home and does not wish to have any further testing at this time * Agrees to take Cardizem CD for vent rate control and Xarelto for stroke prophylaxis. ASA to stop if takes Xarelto * Outpt f/u advised * Risk factor modification reviewed and discussed. Questions answered BERNADETTE NAM MD FACP FAC CCDS January 21, 2023 11:12
[2023-01-21 11:36] VITALS: BP 161/99
[2023-01-21] MEDS: ACETAMINOPHEN 325 MG TABLET PO PRN (11:45)
[2023-01-21] MEDS ORDERED: DILT240C91 PO (11:48)
[2023-01-21] MEDS ORDERED: LISI10TA25 PO (11:48)
[2023-01-21] MEDS ORDERED: RIVA20TA2 PO (12:04)
--- NOTE | 2023-01-21 12:27 | Discharge Summary ---
Diagnosis/Chief Complaint Date of Admission January 20, 2023 at 14:12 Date of Discharge Discharge Date: January 21, 2023 Discharge Diagnosis AF RVR CAD Suspected JAYMIE Discharge Summary Discharge Physical Examination Allergies: Coded Allergies: No Known Drug Allergies (Unverified , 07/03/18) Vitals & I&Os Vital Signs Date Time Temp Pulse Resp B/P (MAP) Pulse Ox O2 Delivery O2 Flow Rate FiO2 01/21/23 11:36 36.4 72 10 161/99 (119) 96 Room Air General Appearance: Alert, Oriented X3, Cooperative Respiratory: Clear to Auscultation Cardiovascular: Regular Rate Psych/Mental Status: Mental Status NL Hospital Course Was the Problem List Reviewed?: Yes Short course after admitted for AF RVR which resolved and converted to NSR in ER so she was placed on OAC of which she was non-compliant with Eliquis at home and Dr Valente evaluated her to be safe for DC on Xarelto and DC BB and ASA and I rec JAYMIE sleep study and she was DC in improved condition on Cardizem Labs (last 24 hrs) Laboratory Tests 01/20/23 11:25: White Blood Count 7.7, Red Blood Count 4.35, Hemoglobin 13.9, Hematocrit 41, Mean Corpuscular Volume 94, Mean Corpuscular Hemoglobin 32, Mean Corpuscular Hemoglobin Concent 34, Red Cell Distribution Width 13.0, Platelet Count 247, Mean Platelet Volume 9.2, Immature Granulocyte % (Auto) 0, Neutrophils (%) (Auto) 67, Lymphocytes (%) (Auto) 25, Monocytes (%) (Auto) 6, Eosinophils (%) (Auto) 1, Basophils (%) (Auto) 0, Neutrophils # (Auto) 5.2, Lymphocytes # (Auto) 1.9, Monocytes # (Auto) 0.5, Eosinophils # (Auto) 0.1, Basophils # (Auto) 0.0, Immature Granulocyte # (Auto) 0.0, Prothrombin Time 14.0, INR Comment 1.0, Activated Partial Thromboplast Time 30, D-Dimer 0.94H, Sodium Level 139, P otassium Level 4.1, Chloride Level 107, Carbon Dioxide Level 20L, Anion Gap 12, Blood Urea Nitrogen 22H, Creatinine 0.87, Estimat Glomerular Filtration Rate 68, BUN/Creatinine Ratio 25, Glucose Level 105, Calcium Level 9.7, Corrected Calcium 10.0, Magnesium Level 1.7, Total Bilirubin 0.8, Aspartate Amino Transf (AST/SGOT) 16, Alanine Aminotransferase (ALT/SGPT) 11, Alkaline Phosphatase 74, Troponin I 0.082H, B-Type Natriuretic Peptide 482.2H, Total Protein 6.5, Albumin 3.6, Thyroid Stimulating Hormone (TSH) 1.64 01/21/23 04:20: White Blood Count 6.1, Red Blood Count 3.87, Hemoglobin 12.5, Hematocrit 36, Mean Corpuscular Volume 94, Mean Corpuscular Hemoglobin 32, Mean Corpuscular Hemoglobin Concent 34, Red Cell Distribution Width 13.2, Platelet Count 201, Mean Platelet Volume 9.0, Immature Granulocyte % (Auto) 0, Neutrophils (%) (Auto) 59, Lymphocytes (%) (Auto) 33, Monocytes (%) (Auto) 6, Eosinophils (%) (A uto) 2, Basophils (%) (Auto) 1, Neutrophils # (Auto) 3.6, Lymphocytes # (Auto) 2.0, Monocytes # (Auto) 0.4, Eosinophils # (Auto) 0.1, Basophils # (Auto) 0.0, Immature Granulocyte # (Auto) 0.0, Sodium Level 142, Potassium Level 3.9, Chloride Level 111H, Carbon Dioxide Level 20L, Anion Gap 11, Blood Urea Nitrogen 22H, Creatinine 0.77, Estimat Glomerular Filtration Rate 78, BUN/Creatinine Ratio 29, Glucose Level 91, Calcium Level 9.1, Corrected Calcium 9.5, Total Bilirubin 0.8, Aspartate Amino Transf (AST/SGOT) 16, Alanine Aminotransferase (ALT/SGPT) 10, Alkaline Phosphatase 74, Total Protein 6.0L, Albumin 3.5 Pending Labs Laboratory Tests 01/20/23 11:25: White Blood Count 7.7, Red Blood Count 4.35, Hemoglobin 13.9, Hematocrit 41, Mean Corpuscular Volume 94, Mean Corpuscular Hemoglobin 32, Mean Corpuscular Hemoglobin Concent 34, Red Cell Distribution Width 13.0, Platelet Count 247, Mean Platelet Volume 9.2, Immature Granulocyte % (Auto) 0, Neutrophils (%) (Auto) 67, Lymphocytes (%) (Auto) 25, Monocytes (%) (Auto) 6, Eosinophils (%) (Auto) 1, Basophils (%) (Auto) 0, Neutrophils # (Auto) 5.2, Lymphocytes # (Auto) 1.9, Monocytes # (Auto) 0.5, Eosinophils # (Auto) 0.1, Basophils # (Auto) 0.0, Immature Granulocyte # (Auto) 0.0, Prothrombin Time 14.0, INR Comment 1.0, Ac tivated Partial Thromboplast Time 30, D-Dimer 0.94, Sodium Level 139, Potassium Level 4.1, Chloride Level 107, Carbon Dioxide Level 20, Anion Gap 12, Blood Urea Nitrogen 22, Creatinine 0.87, Estimat Glomerular Filtration Rate 68, BUN/Creatinine Ratio 25, Glucose Level 105, Calcium Level 9.7, Corrected Calcium 10.0, Magnesium Level 1.7, Total Bilirubin 0.8, Aspartate Amino Transf (A ST/SGOT) 16, Alanine Aminotransferase (ALT/SGPT) 11, Alkaline Phosphatase 74, Troponin I 0.082, B-Type Natriuretic Peptide 482.2, Total Protein 6.5, Albumin 3.6, Thyroid Stimulating Hormone (TSH) 1.64 01/21/23 04:20: White Blood Count 6.1, Red Blood Count 3.87, Hemoglobin 12.5, Hematocrit 36, Mean Corpuscular Volume 94, Mean Corpuscular Hemoglobin 32, Mean Corpuscular Hemoglobin Concent 34, Red Cell Distribution Width 13.2, Platelet Count 201, Mean Platelet Volume 9.0, Immature Granulocyte % (Auto) 0, Neutrophils (%) (Auto) 59, Lymphocytes (%) (Auto) 33, Monocytes (%) (Auto) 6, Eosinophils (%) (Auto) 2, Basophils (%) (Auto) 1, Neutrophils # (Auto) 3.6, Lymphocytes # (Auto) 2.0, Monocytes # (Auto) 0.4, Eosinophils # (Auto) 0.1, Basophils # (Auto) 0.0, Immature Granulocyte # (Auto) 0.0, Sodium Level 142, Potassium Level 3.9, Chloride Level 111, Carbon Dioxide Level 20, Anion Gap 11, Blood Urea Nitrogen 22, Creatinine 0.77, Estimat Glomerular Filtration Rate 78, BUN/Creatinine Ratio 29, Glucose Level 91, Calcium Level 9.1, Corrected Calcium 9.5, Total Bilirubin 0.8, Aspartate Amino Transf (AST/SGOT) 16, Alanine Aminotransferase (ALT/SGPT) 10, Alkaline Phosphatase 74, Total Protein 6.0, Albumin 3.5 Discharge Home Medications: Active Scripts Active Xarelto Tablet (Rivaroxaban) 20 Mg Tablet 20 Mg PO DAILY@1700 Lisinopril 10 Mg Tablet 10 Mg PO DAILY PRN 30 Days Diltiazem 24Hr ER (Diltiazem HCl) 240 Mg Cap.er.24h 240 Mg PO DAILY Instructions to patient/family Please see electronic discharge instructions given to patient. SKYLER RENDON DO January 21, 2023 12:27
[2023-01-21] MEDS ORDERED: RIVAROXABAN 20 MG TABLET (XARELTO) PO SCH (17:00)
== END 2023-01-21 11:45 | disposition home or self-care (01) ==
LOC: EDUNIT# 10:59 → ER 11:01 → UNDOADMOB 14:12 → CSD 14:12 → UNDODISOB 01-21 11:45
PROVIDERS: ADMIT Internal Medicine; ATTEND Internal Medicine
DX: I48.0 Paroxysmal atrial fibrillation (principal); I25.10 Atherosclerotic heart disease of native coronary artery without angina pectoris; I10 Essential (primary) hypertension; R77.8 Other specified abnormalities of plasma proteins; E78.5 Hyperlipidemia, unspecified; G89.29 Other chronic pain; E11.9 Type 2 diabetes mellitus without complications; M54.9 Dorsalgia, unspecified; M25.569 Pain in unspecified knee
CPT/HCPCS: 71045; 71275; 80053 ×2; 83735; 83880; 84443; 84484; 85025 ×2; 85379; 85610; 85730; 93005; 93041; 94761; 96360; 99284; C8929; G0378; 36415; 93306

== ENCOUNTER → 2023-06-27 | Outpatient (CLI) | payer MEDICARE ==
[~2023-06-27] MED LIST changes: +CATHETER FLUSH 10 ML SYR IVP PRN; +DILT240C91 PO; +LISI10TA25 PO; +REGADENOSON 0.4 MG/5 ML SYR IV ONE; +RIVA20TA2 PO
[2023-06-27 12:53] VITALS: BP 160/113
--- NOTE | 2023-06-28 16:09 | STRESS TEST ---
DATE OF SERVICE: 06/27/2023 RESTING AND POST REGADENOSON TECHNETIUM-99M TETROFOSMIN SPECT CT IMAGING ORDERING PHYSICIAN: Antonia Valente MD; TIM; LINDA; PHILL;. CLINICAL DIAGNOSIS: Shortness of breath. Baseline images were carried out after injection of 10.94 mCi of technetium-99m tetrofosmin. This was followed by 0.4 mg regadenoson and 31.5 mCi of technetium-99m tetrofosmin for stress imaging. The electrocardiogram showed sinus rhythm with nonspecific ST abnormality at baseline. It did not change significantly with regadenoson infusion. The patient tolerated the procedure well. Review of images at rest and following stress did not indicate any distinct perfusion defects consistent with significant myocardial ischemia or infarction. Gated images show normal global left ventricular systolic function with normal regional wall motion. Left ventricular ejection fraction is calculated to be 64%. CONCLUSIONS: 1. No evidence of any significant myocardial ischemia or infarction on this study. 2. Normal regional wall motion. 3. Normal global left ventricular systolic function with a calculated ejection fraction of 64%. Job ID: [id number] DocumentID: [id number] Dictated Date: 06/28/2023 13:08:47 Dental Sales Representative Date: 06/28/2023 16:08:00 Dictated By: ANTONIA VALENTE MD; TIM; LINDA; PHILL;
== END ==
LOC: CARD 11:30
PROVIDERS: ATTEND Internal Medicine Cardiovascular Disease
DX: R06.09 Other forms of dyspnea (principal)
CPT/HCPCS: 78452; 93017; A9502